=== PATIENT | female | born 1960 | race Two or more races ===

== ENCOUNTER 2016-10-09 06:48 | Day surgery (SDC) | payer BC ==
[~2016-10-09] VITALS: Ht 167.6 cm; Wt 74.8 kg
[~2016-10-09 06:48] MED LIST: AMBIEN
[2016-10-09] MEDS ORDERED: CLINDAMYCIN 600MG IV 50 ML IV ONE (06:59)
[2016-10-09] MEDS ORDERED: BUPIVACAINE 0.25% INJ 50ML VIAL ONE ×2 (08:27→11:13)
[2016-10-09] MEDS ORDERED: fentaNYL CITRATE 100 MCG/2 ML VL ONE (08:41)
[2016-10-09] MEDS ORDERED: MEPERIDINE HCL (50 MG/ML) 1 ML VIAL ONE (08:42)
[2016-10-09] MEDS ORDERED: MIDAZOLAM HCL 1MG/1ML-2 ML VIAL ONE (08:42)
[2016-10-09] MEDS ORDERED: ONDANSETRON HCL 4 MG/2 ML VIAL IV ONE (08:45)
[2016-10-09] MEDS ORDERED: KETOROLAC TROMETH 30 MG/ML 1ML VIAL IV ONE (08:45)
[2016-10-09] MEDS ORDERED: MIDAZOLAM HCL 1MG/1ML-2 ML VIAL IV PRN (08:45)
[2016-10-09] MEDS ORDERED: LABETALOL HCL 5 MG/ML 4ML SYRINGE IV PRN (08:45)
[2016-10-09] MEDS ORDERED: hydrALAZINE HCL 20 MG/ML VL IV PRN (08:45)
[2016-10-09] MEDS ORDERED: ePHEDrine SULFATE 50 MG/ML AMP IV PRN (08:45)
[2016-10-09] MEDS ORDERED: HYDROmorphone HCL 2 MG/ML VL IV PRN (08:45)
[2016-10-09] MEDS ORDERED: DEXAMETHASONE SOD PHOS 10MG/1ML VIAL INJ ONE (08:55)
[2016-10-09] MEDS ORDERED: MORPHINE SULF(PF) 0.5MG/ML 10ML VIAL ONE (08:55)
[2016-10-09] MEDS ORDERED: PROPOFOL 10 MG/ML 20 ML IV ONE (08:55)
[2016-10-09] MEDS ORDERED: fentaNYL CITRATE 100 MCG/2 ML VL IV ONE (09:00)
[2016-10-09] MEDS ORDERED: KETOROLAC TROMETH 30 MG/ML 1ML VIAL ONE (09:08)
[2016-10-09] MEDS ORDERED: PHENYLEPHRINE HCL 10 MG/ML VL ONE (09:19)
[2016-10-09] MEDS ORDERED: BUPIVACAINE 0.25% INJ 50ML VIAL IJ ONE (09:30)
[2016-10-09 10:59] VITALS: BP 127/92
== END 2016-10-09 11:09 | disposition home or self-care (01) ==
LOC: EDUNIT# 06:48 → SUR 06:48
PROVIDERS: ATTEND Orthopaedic Surgery
DX: S83.242A Other tear of medial meniscus, current injury, left knee, initial encounter (principal); X58.XXXA Exposure to other specified factors, initial encounter; Y93.9 Activity, unspecified; Y92.9 Unspecified place or not applicable; Y99.9 Unspecified external cause status; F17.200 Nicotine dependence, unspecified, uncomplicated
CPT/HCPCS: 29870; J1100; J1885; J2175; J2250; J2270; J2370; J2704; J3010; J3490

== ENCOUNTER 2016-10-16 16:45 | Emergency (ER) | payer BC ==
[~2016-10-16] VITALS: Ht 167.6 cm; Wt 74.8 kg
[2016-10-16 16:49] VITALS: BP 139/90
[2016-10-16 17:32] LABS: Basophils # (auto) 0 uL; Basophils % (auto) 0.3 % (0.0-2.0); Eosinophils # (auto) 0.2 uL; Eosinophils % (auto) 1.9 % (0.0-7.0); Hematocrit 45.2 % (36.0-46.0); Hemoglobin 14.3 g/dL (12.2-16.2); Lymphocytes # (auto) 3.1 uL; Lymphocytes % (auto) 27.6 % (10.0-50.0); Mean Corpuscular Hgb Conc. 31.6 g/dL (32.0-36.0); Mean Corpuscular Volume 91.7 fL (80.0-100.0); Mean Platelet Volume 7.9 fL (7.4-10.4); Monocytes # (auto) 1.2 uL; Monocytes % (auto) 10.3 % (0.0-12.0); Neutrophils # (auto) 6.8 uL; Neutrophils % (auto) 59.9 % (37.0-80.0); Platelet Count (auto) 312 10^3/uL (140-450); Red Cell Distribution Width 13.4 % (11.6-16.0); White Blood Cell 11.4 10^3/uL (4.4-10.8)
[2016-10-16 17:40] LABS: Albumin 3.9 g/dL (3.4-5.0); Alkaline Phosphatase 99 U/L (45-117); Anion Gap 8 (5-15); Aspartate Aminotransferase 16 U/L (15-37); BUN/Creatinine Ratio 22.6; Bilirubin, Total 0.4 mg/dL (0.2-1.0); Blood Urea Nitrogen 19 mg/dL (7-18); Calcium 8.9 mg/dL (8.5-10.1); Carbon Dioxide 28 mmol/L (21-32); Chloride 107 mmol/L (98-107); GFR African American 90 mL/min; GFR Non-African American 74 mL/min; Glucose 87 mg/dL (74-106); Magnesium 2.5 mg/dL (1.6-2.6); Potassium 4.3 mmol/L (3.5-5.1); Sodium 143 mmol/L (136-145); Total Protein 7.2 g/dL (6.4-8.2)
== END 2016-10-16 21:11 | disposition left against medical advice (07) ==
LOC: ER 16:47 → EDUNIT# 16:47 → ER 21:11
DX: R06.02 Shortness of breath (principal); Z53.21 Procedure and treatment not carried out due to patient leaving prior to being seen by health care provider
CPT/HCPCS: 36415; 71020; 80053; 83735; 84484; 85025; 85379

== ENCOUNTER 2016-10-21 12:07 | Emergency (ER) | payer BC ==
[~2016-10-21] VITALS: Ht 167.6 cm; Wt 74.8 kg
[2016-10-21] MEDS ORDERED: SODIUM CHLORIDE 0.9% 1,000 ML IV ONE (13:25)
[2016-10-21 14:26] LABS: Albumin 3.7 g/dL (3.4-5.0); BUN/Creatinine Ratio 15.9; Bilirubin, Total 0.4 mg/dL (0.2-1.0); Calcium 9.2 mg/dL (8.5-10.1); Magnesium 2.6 mg/dL (1.6-2.6)
[2016-10-21 14:28] LABS: Basophils # (auto) 0 uL; Basophils % (auto) 0.3 % (0.0-2.0); Eosinophils # (auto) 0.2 uL; Eosinophils % (auto) 1.7 % (0.0-7.0); Hematocrit 41.7 % (36.0-46.0); Lymphocytes # (auto) 2.5 uL; Lymphocytes % (auto) 27.5 % (10.0-50.0); Mean Corpuscular Hgb Conc. 33.5 g/dL (32.0-36.0); Mean Corpuscular Volume 89.5 fL (80.0-100.0); Mean Platelet Volume 7.8 fL (7.4-10.4); Monocytes # (auto) 0.6 uL; Monocytes % (auto) 6.6 % (0.0-12.0); Neutrophils # (auto) 5.9 uL; Neutrophils % (auto) 63.9 % (37.0-80.0); Platelet Count (auto) 330 10^3/uL (140-450); Red Cell Distribution Width 13.4 % (11.6-16.0); White Blood Cell 9.2 10^3/uL (4.4-10.8)
[2016-10-21] MEDS ORDERED: IOHEXOL 350 MG/ML 100ML IJ ONE (14:58)
[2016-10-21 16:52] VITALS: BP 118/95
== END 2016-10-21 17:10 | disposition home or self-care (01) ==
LOC: ER 12:13
DX: R06.02 Shortness of breath (principal); Z96.652 Presence of left artificial knee joint
CPT/HCPCS: 36415; 71020; 71275; 80053; 83735; 84443; 85025; 85379; 93005; 93971; 94761; 96360; 96361; 99285; J7030; Q9967

== ENCOUNTER 2019-05-18 05:47 | Inpatient (IN) | payer BC ==
[~2019-05-18] VITALS: Ht 167.6 cm; Wt 93.9 kg
[2019-05-18 06:51] LABS: Basophils # (auto) 0 uL; Basophils % (auto) 0.1 % (0.0-2.0); Eosinophils # (auto) 0 uL; Eosinophils % (auto) 0.1 % (0.0-7.0); Hemoglobin 15.1 g/dL (12.2-16.2); Lymphocytes # (auto) 1.4 uL; Lymphocytes % (auto) 8.4 % (10.0-50.0); Mean Corpuscular Hemoglobin 29.9 pg (28.0-32.0); Mean Corpuscular Hgb Conc. 34.2 g/dL (32.0-36.0); Mean Corpuscular Volume 87.3 fL (80.0-100.0); Monocytes # (auto) 1.1 uL; Monocytes % (auto) 6.2 % (0.0-12.0); Neutrophils # (auto) 14.7 uL; Neutrophils % (auto) 85.2 % (37.0-80.0); Platelet Count (auto) 231 10^3/uL (140-450); Red Blood Cells 5.05 10^6/uL (4.0-5.20); Red Cell Distribution Width 14.3 % (11.8-14.3); White Blood Cell 17.2 10^3/uL (4.4-10.8)
[2019-05-18 07:20] LABS: Alanine Aminotransferase 16 U/L (13-56); Albumin 3.1 g/dL (3.4-5.0); Amylase 31 U/L (25-115); Anion Gap 10 (5-15); Aspartate Aminotransferase 12 U/L (15-37); Blood Urea Nitrogen 16 mg/dL (7-18); Calcium 9.1 mg/dL (8.5-10.1); Carbon Dioxide 21 mmol/L (21-32); Chloride 107 mmol/L (98-107); Glucose 140 mg/dL (74-106); Lipase 79 U/L (73-393); Potassium 3.6 mmol/L (3.5-5.1); Sodium 138 mmol/L (136-145)
[2019-05-18 07:25] LABS: Alkaline Phosphatase 90 U/L (45-117); Bilirubin, Total 1.1 mg/dL (0.2-1.0); GFR African American 89 mL/min; GFR Non-African American 73 mL/min; Total Protein 7.3 g/dL (6.4-8.2)
[2019-05-18] MEDS ORDERED: SODIUM CHLORIDE 0.9% 1,000 ML IV ONE ×2 (07:34)
[2019-05-18] MEDS ORDERED: ONDANSETRON HCL 4 MG/2 ML VIAL IV ONE (07:45)
[2019-05-18] MEDS ORDERED: LEVOFLOXACIN 500MG 100 ML IV ONE (07:45)
[2019-05-18] MEDS ORDERED: MORPHINE SULFATE 4 MG/ML SYR/VIAL IV ONE (07:45)
[2019-05-18] MEDS ORDERED: VANCOMYCIN 1GM/250ML 250 ML IV ONE (07:45)
[2019-05-18] MEDS ORDERED: NITROGLYCERIN 0.4 MG SL TAB SL PRN (08:00)
[2019-05-18] MEDS ORDERED: HYDROmorphone HCL 2 MG/ML VL IV PRN ×2 (08:00→11:30)
[2019-05-18] MEDS ORDERED: SODIUM CHLORIDE 0.9% 500 ML IV ONE (08:00)
[2019-05-18] MEDS ORDERED: VANCOMYCIN PER PHARMACY 0 MG IV SCH (08:00)
[2019-05-18] MEDS ORDERED: ONDANSETRON HCL 4 MG/2 ML VIAL IV PRN ×2 (08:00→11:30)
[2019-05-18] MEDS ORDERED: diphenhdrAMINE HCL 50 MG/1 ML VL ONE (08:11)
[2019-05-18] MEDS ORDERED: diphenhdrAMINE HCL 50 MG/1 ML VL IV ONE (08:15)
[2019-05-18] MEDS ORDERED: SOD CHL 0.45% WITH 20MEQ KCL 1,000 ML IV STA (09:02)
[2019-05-18 10:01] LABS: INR 1.03 (0.9-1.15); Partial Thromboplastin Time 29.3 sec (23.64-32.05)
[2019-05-18 10:05] LABS: Urine Bacteria FEW /hpf (None Seen); Urine Blood 2+ /uL (Negative); Urine Specific Gravity 1.008 (1.001-1.035); Urine WBC 1 /hpf (0 - 5)
[2019-05-18] MEDS: SODIUM CHLORIDE 0.9% 1,000 ML IV SCH ×2 (10:22→18:42)
[2019-05-18] MEDS ORDERED: ROCURONIUM 10MG/ML 10ML VIAL IV ONE (11:19)
[2019-05-18] MEDS ORDERED: PROPOFOL 10 MG/ML 20 ML IV ONE (11:19)
[2019-05-18] MEDS ORDERED: MIDAZOLAM HCL 1MG/1ML-2 ML VIAL ONE (11:19)
[2019-05-18] MEDS ORDERED: fentaNYL CITRATE 5 ML ONE (11:19)
[2019-05-18] MEDS ORDERED: SUCCINYLCHOLINE CHLORIDE 20 MG/ML 10ML VIAL IV ONE (11:21)
[2019-05-18] MEDS ORDERED: ePHEDrine SULFATE 50 MG/ML AMP IV PRN (11:30)
[2019-05-18] MEDS ORDERED: hydrALAZINE HCL 20 MG/ML VL IV PRN (11:30)
[2019-05-18] MEDS ORDERED: POVIDONE IODINE 5% TOPICAL CREAM TOP ONE (12:19)
[2019-05-18] MEDS: HYDROmorphone HCL 2 MG/ML VL IV PRN ×2 (13:36→13:48)
[2019-05-18 14:30] VITALS: BP 124/80
--- NOTE | 2019-05-18 14:30 | NUR ---
MS admit from [facility] ROSAURA BONILLA admitted to tele/MS after SBAR received. Patient oriented to MATT MANCERA, primary RN, unit, room, bed, and unit policies regarding patient care and visiting hours. Patient weighed by bed scale and encouraged to call if they need something. All questions and concerns addressed, patient verbalized understanding.
--- NOTE | 2019-05-18 16:30 | NUR ---
Dr. Nichols paged regarding NG to low suction order. Awaiting to call back.
[2019-05-18] MEDS: KETOROLAC TROMETH 30 MG/ML 1ML VIAL IV PRN ×2 (16:35→22:15)
[2019-05-18 16:54] VITALS: BP 124/80
--- NOTE | 2019-05-18 16:55 | NUR ---
Received a call from Dr. Nichols with new order : NG need to be connected to low suction.
--- NOTE | 2019-05-18 18:40 | NUR ---
Empty 120 ml serosanguineous from 2 DEB drains.
[2019-05-18] MEDS: VANCOMYCIN 1GM/250ML 250 ML IV SCH (20:07)
--- NOTE | 2019-05-18 20:57 | NUR ---
ABDOMINAL PAIN PATIENT C/O ABDOMINAL PAIN 8/10 AND A HEADACHE. PATIENT CURRENTLY ON TORADOL 30MG IV Q 6HRS PRN AND DOESNT SEEM TO BE CONTROLLING HER PAIN. PATIENT S/P EX LAP PERITONEAL LAVAGE AND INSERTION OF PERITONEAL DRAIN WITH DR GUTIÉRREZ. PATIENT HAS ALLERGIES TO MORPHINE WITH ITCHINESS. PHARMACY PLACED ORDER FOR DILAUDID ON HOLD D/T MORPHINE ALLERGIES. ATTEMPTED TO CONTACT DR GUTIÉRREZ MADE AWARE, AND STATES TO CONTACT HOSPITALIST. PAGED HOSPITALIST AWAITING CALL BACK.
[2019-05-18 22:00] VITALS: BP 115/69
[2019-05-19] MEDS: KETOROLAC TROMETH 30 MG/ML 1ML VIAL IV PRN ×2 (04:07→20:50)
[2019-05-19] MEDS: SODIUM CHLORIDE 0.9% 1,000 ML IV SCH ×2 (04:07→17:06)
[2019-05-19 05:28] VITALS: BP 112/81
[2019-05-19 05:33] LABS: Basophils # (auto) 0 uL; Basophils % (auto) 0.1 % (0.0-2.0); Eosinophils # (auto) 0 uL; Hematocrit 34.4 % (36.0-46.0); Hemoglobin 11.7 g/dL (12.2-16.2); Lymphocytes # (auto) 0.8 uL; Mean Corpuscular Hgb Conc. 34.1 g/dL (32.0-36.0); Monocytes # (auto) 0.8 uL; Monocytes % (auto) 8.1 % (0.0-12.0); Neutrophils # (auto) 8.4 uL; Neutrophils % (auto) 83.8 % (37.0-80.0); Platelet Count (auto) 196 10^3/uL (140-450); Red Blood Cells 3.91 10^6/uL (4.0-5.20); Red Cell Distribution Width 14.3 % (11.8-14.3); White Blood Cell 10.1 10^3/uL (4.4-10.8)
[2019-05-19 05:49] LABS: Potassium 3.9 mmol/L (3.5-5.1)
[2019-05-19 05:53] LABS: Albumin 2.1 g/dL (3.4-5.0); BUN/Creatinine Ratio 23.6; Calcium 7.9 mg/dL (8.5-10.1)
[2019-05-19 05:56] LABS: Bilirubin, Total 0.5 mg/dL (0.2-1.0); Total Protein 5.5 g/dL (6.4-8.2)
--- NOTE | 2019-05-19 07:45 | NUR ---
Opening Shift Note Assumed care of patient from NOC RN. Patient awake and alert with no S/S of distress/SOB. C/O abdominal pain 5/10 on adult pain scale and is not requesting pain medication at this time. NG tube to left nares, intact, patent and set to low intermittent suction. Canister has approximately 100mls of dark brown drainage. Medial abdomen with surgical dressing, clean/dry and intact. DEB drains to RLQ and LLQ, both will minimal serosanguineous drainage. Abdominal binder in place. SCD's on bilateral lower extremities. Instructed on POC and to call for assist PRN, verbalized understanding. Bed in lowest, locked position with side rails up x2 and call light within reach. will continue to monitor for changes Q1hr and PRN.
[2019-05-19] MEDS: VANCOMYCIN 1GM/250ML 250 ML IV SCH ×2 (09:03→20:30)
[2019-05-19 10:00] VITALS: BP 116/69
[2019-05-19] MEDS: LEVOFLOXACIN 500MG 100 ML IV SCH (10:52)
[2019-05-19] MEDS ORDERED: GLYCOPYRROLATE 0.2 MG/ML 1ML VIAL IV ONE (12:47)
--- NOTE | 2019-05-19 13:30 | NUR ---
DEB DRAINS Emptied 40mls of serosanguineous fluid from right lower quadrant DEB drain and 60mls from left lower quadrant DEB drain.
--- NOTE | 2019-05-19 13:45 | NUR ---
ASHRAF Order to discontinue ashraf catheter. Ashraf dc'd with clean technique following deflation of balloon. 900mls of light yellow urine was emptied. Patient tolerated well with no complaints of pain. Continue care.
[2019-05-19 14:00] VITALS: BP 114/70
--- NOTE | 2019-05-19 15:42 | NUR ---
IV IV access obtained, via clean sterile technique by inserting 22 gauge catheter at right AC after 4 attempts. IV secured properly. No trauma to site. Patient tolerated well.
[2019-05-19 16:59] VITALS: BP 110/70
[2019-05-19] MEDS: NALBUPHINE HCL 10 MG/1ml INJECTION IV PRN ×2 (17:06→23:44)
--- NOTE | 2019-05-19 19:30 | NUR ---
Opening Shift Note Assumed care of patient, awake and alert. No S/S of distress or SOB. Patient reports pain level 5/10. Will medicated as soon as possible. Instructed on POC and to call for assist PRN, will continue to monitor for changes Q1hr and PRN. Patient due to void after ashraf discontinued today.
--- NOTE | 2019-05-19 19:50 | NUR ---
CLOSING NOTE Endorsed care of patient to NOC RN.
[2019-05-19 21:27] VITALS: BP 110/79
--- NOTE | 2019-05-19 22:00 | NUR ---
Patient ambulated to bathroom with assistance. Voided without problems for first time since ashraf catheter discontinued.
--- NOTE | 2019-05-19 23:50 | NUR ---
DEB drains patent and intact. Empty 30 ml serosanguinous drainage from right DEB and 20 ml serosanguinous drainage from left DEB.
[2019-05-20] MEDS: SODIUM CHLORIDE 0.9% 1,000 ML IV SCH ×3 (02:50→10:00)
[2019-05-20 05:26] VITALS: BP 118/76
[2019-05-20 06:09] LABS: Basophils # (auto) 0 uL; Basophils % (auto) 0.2 % (0.0-2.0); Eosinophils # (auto) 0.2 uL; Eosinophils % (auto) 1.7 % (0.0-7.0); Hematocrit 33.1 % (36.0-46.0); Hemoglobin 11.3 g/dL (12.2-16.2); Lymphocytes # (auto) 1.2 uL; Lymphocytes % (auto) 12.3 % (10.0-50.0); Mean Corpuscular Hemoglobin 30.1 pg (28.0-32.0); Mean Corpuscular Hgb Conc. 34.2 g/dL (32.0-36.0); Mean Corpuscular Volume 88.1 fL (80.0-100.0); Monocytes % (auto) 10.7 % (0.0-12.0); Neutrophils # (auto) 7.3 uL; Neutrophils % (auto) 75.1 % (37.0-80.0); Platelet Count (auto) 225 10^3/uL (140-450); Red Blood Cells 3.76 10^6/uL (4.0-5.20); Red Cell Distribution Width 14.2 % (11.8-14.3); White Blood Cell 9.7 10^3/uL (4.4-10.8)
[2019-05-20 06:36] LABS: Anion Gap 6 (5-15); Carbon Dioxide 24 mmol/L (21-32); Chloride 111 mmol/L (98-107); Glucose 98 mg/dL (74-106); Potassium 3.8 mmol/L (3.5-5.1); Sodium 141 mmol/L (136-145)
[2019-05-20 06:37] LABS: BUN/Creatinine Ratio 33.3; Blood Urea Nitrogen 16 mg/dL (7-18); Calcium 8.2 mg/dL (8.5-10.1); GFR African American 169 mL/min; GFR Non-African American 140 mL/min
[2019-05-20] MEDS: NALBUPHINE HCL 10 MG/1ml INJECTION IV PRN ×2 (07:09→16:04)
--- NOTE | 2019-05-20 07:10 | NUR ---
NG TUBE OUTPUT 15O ML, BROWN DRAINAGE.
--- NOTE | 2019-05-20 07:30 | NUR ---
SHIFT CLOSING NOTE ENDORSED CARE OF PATIENT TO DAY SHIFT, JOELLEN ALVARADO.
[2019-05-20 08:00] VITALS: BP 117/74
--- NOTE | 2019-05-20 08:00 | NUR ---
Opening Shift Note Assumed care of patient, awake and alert x4. No S/S of distress/SOB or pain. Patient c/o fatigue, she states she did not have a good night and would like to sleep for a couple of hours. Dressing to medial abdomen is clean dry and intact. DEB drain to the left is intact and dressing is mildly saturated with old blood. DEB drain to the left is intact and draining well. Bed is a t lowest locked position, side rails up x2 and call light within reach. Instructed on POC and to call for assist PRN, will continue to monitor for changes Q1hr and PRN.
[2019-05-20] MEDS: VANCOMYCIN 1GM/250ML 250 ML IV SCH ×2 (08:25→20:17)
[2019-05-20 09:00] VITALS: BP 117/74
--- NOTE | 2019-05-20 09:40 | NUR ---
ASSISTED PATIENT TO BATHROOM. PATIENT AMBULATED WITH STEADY GAIT, C/O MILD PAIN WITH AMBULATION. INSTRUCTED PATIENT TO PATIENT TO CALL FOR ASSISTANCE.WILL CONTINUE TO MONITOR.
[2019-05-20] MEDS: LEVOFLOXACIN 500MG 100 ML IV SCH (10:37)
--- NOTE | 2019-05-20 12:22 | NUR ---
Nutrition Assessment Notes Please see attached link for complete assessment Est. Needs ABW [id number] kcal (23-25 kcal/kgBW), 75-82 gms pro (1.0-1.1 gms/kgBW). Will continue to monitor pertinent labs and reassess nutrient need prn Addendum: 05/20/19 at [address] Amended: Links added.
[2019-05-20 13:00] VITALS: BP 124/78
[2019-05-20] MEDS: KETOROLAC TROMETH 30 MG/ML 1ML VIAL IV PRN ×2 (13:53→19:53)
[2019-05-20 17:00] VITALS: BP 127/80
--- NOTE | 2019-05-20 18:50 | NUR ---
NGT Collected 125mls of brownish fluid.
--- NOTE | 2019-05-20 18:55 | NUR ---
DEB DRAINS Collected 30mls of serosanguineous fluid from LLQ DEB drain and 7O mls of serosanguineous fluid from RLQ DEB drain. Both drains are intact. Patient tolerated well.
--- NOTE | 2019-05-20 19:17 | NUR ---
closing note shift Patient comfortably resting in bed. No c/o pain. No s/s of distress/SOB. Bed at lowest locked position , side rails up x2 and call light within reach. Family at bed side. Care endorsed to DOUG Chavez RN.
--- NOTE | 2019-05-20 20:00 | NUR ---
OPENING NOTE RECEIVED REPORT FROM ELROY RN. ASSUMING ROLE OF CARE OF PATIENT AT THIS TIME. PATIENT SHOWING NO SIGN OF DISTRESS, SHORTNESS OF BREATH, BUT PATIENT STATES PAIN IS 8/10. WILL MEDICATE PER PAIN PROTOCOL WHEN AVAILABLE. PATIENT EDUCATED ON PLAN OF CARE FOR THE NIGHT AND PATIENT VERBALIZED UNDERSTANDING. DRESSINGS CLEAN DRY AND INTACT. DEB DRAINS DRAINING SANGUINEOUS FLUID AND NG TUBE IN PLACE SET TO LIS. BED LOWERED, CALL LIGHT WITHIN REACH, AND PATIENT WILL BE ROUNDED ON EVERY HOUR AND NEEDED.
[2019-05-20 22:00] VITALS: BP 119/71
--- NOTE | 2019-05-20 22:00 | NUR ---
HOSPITALIST PAGED PATIENT REQUESTING SOMETHING FOR DECONGESTION. PATIENT IS NPO WITH AN NG TUBE IN PLACE AND TWO DEB DRAINS FOLLOWING A PERITONEAL LAVAGE. WILL AWAIT CALL BACK OR ORDERS.
[2019-05-20] MEDS ORDERED: ACETYLCYSTEINE 10 %(100MG/ML) SOL 4ML NEB ONE (23:00)
--- NOTE | 2019-05-20 23:04 | NUR ---
CONTACTED RT INFORMED RT OF ORDER FOR MUCOMYST. INFORMED BY RT FARHANA THAT INHALANT CANNOT BE ADMINISTERED BY ITSELF BUT MUST BE ACCOMPANIED BY A BRONCHODILATOR. WILL CONTACT HOSPITALIST FOR ORDERS.
[2019-05-21] MEDS ORDERED: ALBUTEROL SULF 2.5 MG/0.5ML(0.5%) NEB SOLN ONE (00:41)
[2019-05-21] MEDS ORDERED: ALBUTEROL SULF 2.5 MG/0.5ML(0.5%) NEB SOLN NEB ONE (00:45)
--- NOTE | 2019-05-21 00:51 | NUR ---
RT NOTE: PAGED FOR BREATHING TX FOR PT CONGESTION. PT ALERT AND ORIENTATED, DENIES SOB. PT COMPLAINS OF SINUS CONGESTION AND STATED SHE TAKES BENADRYL DAILY FOR IT. MED NEB TX GIVEN WITH MINIMAL RELIEF PT STATED. PT REQUEST FOR SOME TYPE OF ALLERGY MEDICATION FOR SINUS ISSUE. JOELLEN MAHARAJ NOTIFIED.
[2019-05-21] MEDS: NALBUPHINE HCL 10 MG/1ml INJECTION IV PRN ×2 (01:09→18:33)
[2019-05-21 05:00] VITALS: BP 124/75
--- NOTE | 2019-05-21 05:38 | NUR ---
CANISTER EMPTIED AT THIS TIME TOTAL OUTPUT FROM NG TUBE DURING SHIFT IS APPROXIMATELY 200ML OR BROWN GREEN FLUID.
--- NOTE | 2019-05-21 06:22 | NUR ---
DEB DRAINS EMPTIED AT THIS TIME. LEFT DRAIN EMPTIED APPROXIMATELY 27 ML OF SANGUINEOUS FLUID WHILE THE RIGHT DEB DRAIN EMPTIED APPROXIMATELY 25 ML OF SANGUINEOUS FLUID.
--- NOTE | 2019-05-21 07:30 | NUR ---
Opening Shift Note Assumed care of patient, awake and alert. No S/S of distress/SOB. Pain reported to abdomen. Pain management options discussed with patient. NG tube in place with LIS applied. Instructed on POC and to call for assist PRN, will continue to monitor for changes Q1hr and PRN.
[2019-05-21 08:00] VITALS: BP 122/70
[2019-05-21] MEDS: KETOROLAC TROMETH 30 MG/ML 1ML VIAL IV PRN ×2 (08:31→17:22)
[2019-05-21] MEDS: VANCOMYCIN 1GM/250ML 250 ML IV SCH ×2 (08:31→20:55)
[2019-05-21] MEDS: SODIUM CHLORIDE 0.9% 1,000 ML IV SCH ×2 (08:35→15:46)
[2019-05-21 09:00] VITALS: BP 122/70
[2019-05-21] MEDS: LEVOFLOXACIN 500MG 100 ML IV SCH (10:00)
[2019-05-21] MEDS: metroNIDAZOLE 500MG/100ML 100 ML IV SCH ×2 (12:32→19:53)
[2019-05-21 13:00] VITALS: BP 138/71
[2019-05-21 17:00] VITALS: BP 134/77
--- NOTE | 2019-05-21 19:20 | NUR ---
RECEIVED PATIENT, AWAKE, ALERT, ORIENTED X4. NO S/S OF RESPIRATORY DISTRESS, STILL C/O OF ABDOMINAL PAIN, DENIES NAUSEA AND VOMITING. WITH NGT CONNECTED ON LIS. WITH DEB DRAINS ON THE RIGHT AND LEFT LOWER ABDOMEN DRAINING TO SANGUINEOUS FLUID. ORIENTED ON PLAN OF CARE. BED IS LOCKED AND IN LOWEST POSITION, SIDE RAILS UP X2, CALL LIGHT WITHIN REACH. WILL CONTINUE TO MONITOR.
[2019-05-21 22:00] VITALS: BP 118/72
[2019-05-22] MEDS: SODIUM CHLORIDE 0.9% 1,000 ML IV SCH ×3 (01:58→22:00)
[2019-05-22] MEDS: KETOROLAC TROMETH 30 MG/ML 1ML VIAL IV PRN ×3 (02:42→15:01)
--- NOTE | 2019-05-22 03:00 | NUR ---
WOUND CARE/DRESSING CHANGE DONE.
[2019-05-22 04:30] VITALS: BP 123/69
[2019-05-22] MEDS: metroNIDAZOLE 500MG/100ML 100 ML IV SCH ×3 (04:41→20:07)
--- NOTE | 2019-05-22 06:43 | NUR ---
DEB DRAINS RIGHT DEB COLLECTED 20 ML OF SANGUINEOUS FLUID LEFT DEB COLLECTED 15 ML OF SANGUINEOUS FLUID
--- NOTE | 2019-05-22 06:50 | NUR ---
NGT OUTPUT COLLECTED 150 ML LIGHT YELLOW FLUID FROM NGT ON LIS
--- NOTE | 2019-05-22 07:00 | NUR ---
CARE ENDORSED TO AM SHIFT RN
[2019-05-22] MEDS: VANCOMYCIN 1GM/250ML 250 ML IV SCH (07:30)
--- NOTE | 2019-05-22 07:36 | NUR ---
PATIENT RECEIVED FROM [employer]IDENT[employer]. 150 ML REPORTED RECEIVED FROM ABDOMINAL DRAINS FOR THE PRESIDENT[employer] EXPERIENCES
[2019-05-22 08:00] VITALS: BP 132/73
[2019-05-22 09:00] VITALS: BP 132/73
[2019-05-22] MEDS: LEVOFLOXACIN 500MG 100 ML IV SCH (10:31)
--- NOTE | 2019-05-22 11:53 | NUR ---
NG DISCONTINUED PER DR. MACE. CLEAR LIQUID DIET. PHYSICAL THERAPY
[2019-05-22 13:00] VITALS: BP 111/77
--- NOTE | 2019-05-22 15:16 | NUR ---
Nutrition Follow-up Notes Wt.: 92.0 kg as of yesterday. Pt's on oxygen via nasal cannula, asleep, no immediate family member at bedside during rounds this morning. Pt's NPO s/p explor lap (05/18/19), no signs of distress noted earlier to start on Clear Liquid diet today. Est. Needs ABW [id number] kcal (23-25 kcal/kgBW), 75-82 gms pro (1.0-1.1 gms/kgBW). Will continue to monitor pertinent labs and reassess nutrient need prn Labs: Gluc 126 H Cl 112 H, BUN 30 H; AST 287 H, ALT 173 H, Alb 3.0 L, Trop I 0.998 H Skin: Evan scale 11, high risk, skin intact per bulk plant operator. GI: Pt's no bowel activity since 05/18/19 per bulk plant operator. PES: Altered nutrition related lab values r/t current/chronic medical condition aeb hypocalcemia, severe hypoalb Will continue to monitor PO intake, skin status, pertinent labs and weight trend. F/u in 3 to 5 days. Rec.: 1.) Advance gradually oral diet (Soft Low Fiber/Residue, Low Fat diet) when medically appropriate. 2.) Continue close supervision during meals. 2.) Continue close supervision with meals. 3.) If Albumin continues trending down, consider Prostat 1 pkt BID. 4.) Refer pt to RD for further nutrition education and weight monitoring upon discharge. 5.) Continue current plan of care.
[2019-05-22] MEDS ORDERED: GASTROGRAFIN 30 ML SOL ONE (15:41)
[2019-05-22 16:46] VITALS: BP 125/74
--- NOTE | 2019-05-22 17:05 | NUR ---
UNSUCCESSFUL Midline Placement: Patient educated on need for midline placement. All risks and benefits explained and all questions and concerns addresses prior to procedure. AFTER ONE UNSUCCESSFUL ATTEMPT, PATIENT STATES SHE DOES NOT WANT ANOTHER ATTEMPT AND "WANTS TO WAIT UNTIL MORNING". PRIMARY RN NOTIFIED.
[2019-05-22] MEDS: NALBUPHINE HCL 10 MG/1ml INJECTION IV PRN (18:49)
--- NOTE | 2019-05-22 19:20 | NUR ---
RECEIVED PATIENT, AWAKE, ALERT, ORIENTED X4. NO S/S OF RESPIRATORY DISTRESS, DENIES ABDOMINAL PAIN, NAUSEA AND VOMITING. WITH DEB DRAINS ON THE RIGHT AND LEFT LOWER ABDOMEN DRAINING TO SANGUINEOUS FLUID. ORIENTED ON PLAN OF CARE. BED IS LOCKED AND IN LOWEST POSITION, SIDE RAILS UP X2, CALL LIGHT WITHIN REACH. WILL CONTINUE TO MONITOR.
[2019-05-22 22:00] VITALS: BP 117/79
[2019-05-23] MEDS: metroNIDAZOLE 500MG/100ML 100 ML IV SCH (03:53)
[2019-05-23] MEDS: NALBUPHINE HCL 10 MG/1ml INJECTION IV PRN ×2 (04:03→18:19)
[2019-05-23 04:49] LABS: Albumin 1.9 g/dL (3.4-5.0); BUN/Creatinine Ratio 18.2; Calcium 7.8 mg/dL (8.5-10.1)
[2019-05-23 04:53] LABS: Bilirubin, Total 0.5 mg/dL (0.2-1.0); Total Protein 5.3 g/dL (6.4-8.2)
[2019-05-23 05:00] VITALS: BP 129/76
[2019-05-23] MEDS ORDERED: POTASSIUM CHLORIDE 20 MEQ, LIDOCAINE 1% (LOCAL ANESTH.) 2 ML in SODIUM CHL 0.9% 100 ML IV ONE (05:30)
--- NOTE | 2019-05-23 05:30 | NUR ---
MARIUM HOSPITALIST, PATIENT'S POTASSIUM LEVEL HAS BEEN TRENDING DOWN, LATEST 3.0 RECEIVED ORDER FROM ANUPAMA DYE; CHANGE IV FLUID TO NS + 20 MEQS KCL AT 100 ML/HR AND 1 K-RIDER 20 MEQS WITH LIDOCAINE
[2019-05-23 05:32] LABS: Basophils # (auto) 0 uL; Basophils % (auto) 0.2 % (0.0-2.0); Eosinophils # (auto) 0.3 uL; Eosinophils % (auto) 2.4 % (0.0-7.0); Hematocrit 34.1 % (36.0-46.0); Hemoglobin 11.3 g/dL (12.2-16.2); Lymphocytes # (auto) 1.2 uL; Lymphocytes % (auto) 9.9 % (10.0-50.0); Mean Corpuscular Hemoglobin 29.1 pg (28.0-32.0); Mean Corpuscular Hgb Conc. 33.1 g/dL (32.0-36.0); Mean Corpuscular Volume 87.7 fL (80.0-100.0); Monocytes # (auto) 1.2 uL; Monocytes % (auto) 10.2 % (0.0-12.0); Neutrophils # (auto) 9.2 uL; Neutrophils % (auto) 77.3 % (37.0-80.0); Platelet Count (auto) 337 10^3/uL (140-450); Red Blood Cells 3.89 10^6/uL (4.0-5.20); Red Cell Distribution Width 14.1 % (11.8-14.3); White Blood Cell 11.9 10^3/uL (4.4-10.8)
[2019-05-23] MEDS: SOD CHL 0.9%/ KCL 20MEQ 1,000 ML IV SCH ×2 (05:47→14:22)
--- NOTE | 2019-05-23 06:41 | NUR ---
DEB DRAINS RIGHT DEB COLLECTED 20 ML OF SANGUINEOUS FLUID LEFT DEB COLLECTED 10 ML OF SANGUINEOUS FLUID
--- NOTE | 2019-05-23 07:10 | NUR ---
CARE ENDORSED TO AM SHIFT RN
--- NOTE | 2019-05-23 07:18 | NUR ---
RECEIVED PATIENT FROM NOC SHIFT. 50CC DRAINAGE FROM DEB DRAINS OVER PASSENGER AGENT WELL 50 CC DRAINAGE FROM DAY SHIFT YESTERDAY.
[2019-05-23] MEDS: KETOROLAC TROMETH 30 MG/ML 1ML VIAL IV PRN ×2 (08:10→14:23)
[2019-05-23 08:19] VITALS: BP 144/84
[2019-05-23 08:23] VITALS: BP 144/84
[2019-05-23] MEDS: LEVOFLOXACIN 500MG 100 ML IV SCH (09:43)
[2019-05-23] MEDS ORDERED: LEVOFLOXACIN 500 MG TAB PO ONE (10:45)
[2019-05-23 12:41] VITALS: BP 120/73
--- NOTE | 2019-05-23 13:04 | NUR ---
PT REFUSED PHYSICAL THERAPY TODAY. NOTIFIED JOELLEN KELLER. Addendum: 05/23/19 at 1305 by JOSE WALSH PTT Amended: Links added.
[2019-05-23] MEDS: metroNIDAZOLE 500 MG TAB PO SCH ×2 (14:22→21:30)
--- NOTE | 2019-05-23 15:27 | NUR ---
assessment Patient is a 59 year old female who is alert and oriented. Patients cognitive abilities are intact. Prior to admission patient lived home with family and functioned independently. 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 Patient has no need for DME. Patient informed me she is able to care for her own ADLs. Per patient she will return home to her prior living arrangements post discharge and family will transport her home. Patient has no post discharge needs at this time. I informed patient she has a right to speak to a foster care social worker regarding all care. I informed patient she has a right to participate in any and all discharge planning. Patient does not have a POA and advanced directive. I have offered patient information on POA and advanced directives. I informed the patient the advantages and benefits of having an Advanced Directive. Patient verbalized understanding and agreed to discharge plan. Addendum: 05/24/19 at 1529 by Echo IBRAHIM Amended: Links added.
[2019-05-23 16:39] VITALS: BP 125/68
[2019-05-23 22:15] VITALS: BP 105/67
[2019-05-24] MEDS: SOD CHL 0.9%/ KCL 20MEQ 1,000 ML IV SCH ×2 (02:14→11:20)
[2019-05-24 05:44] VITALS: BP 110/72
[2019-05-24] MEDS: metroNIDAZOLE 500 MG TAB PO SCH ×2 (05:53→14:33)
--- NOTE | 2019-05-24 06:00 | NUR ---
WOUND CARE/DRESSING CHANGE DONE.
--- NOTE | 2019-05-24 06:48 | NUR ---
DEB DRAINS RIGHT DEB COLLECTED 70 ML OF SANGUINEOUS FLUID LEFT DEB COLLECTED 20 ML OF SANGUINEOUS FLUID
--- NOTE | 2019-05-24 07:34 | NUR ---
CARE ENDORSED TO AM SHIFT RN
[2019-05-24 08:00] VITALS: BP 120/68
--- NOTE | 2019-05-24 08:10 | NUR ---
RECEIVED PATIENT FROM NOC SHIFT. 100CC DRAINAGE FROM DEB DRAINS OVER RESTAURANT AREA DIRECTOR WELL 120 CC DRAINAGE FROM DAY SHIFT YESTERDAY.
[2019-05-24 08:46] VITALS: BP 120/68
[2019-05-24] MEDS: NALBUPHINE HCL 10 MG/1ml INJECTION IV PRN (09:24)
[2019-05-24] MEDS ORDERED: LEVOFLOXACIN 500 MG TAB PO SCH (10:00)
[2019-05-24 12:46] VITALS: BP 110/72
[2019-05-24 14:09] VITALS: BP 110/72
--- NOTE | 2019-05-24 15:54 | NUR ---
PATIENT DISCHARGED HOME. ALL IV ACCESS DISCONTINUED. ALL DISCHARGE INSTRUCTIONS GIVEN. TELEMETRY BOX DISCONTINUED AND RETURNED TO TELEMETRY DEPARTMENT. ALL DISCHARGE PAPERWORK SIGNED.
== END 2019-05-24 15:30 | disposition home or self-care (01) | DRG 853 ==
LOC: ER 05:47 → OVERFLOW 05:48 → TELE-WESTW 14:39
PROVIDERS: ADMIT Nurse Practitioner; ATTEND Family Medicine
PROC: 0W9G00Z Drainage of Peritoneal Cavity with Drainage Device, Open Approach (ICD-10-PCS; principal; 2019-05-18 11:33)
DX: A41.9 Sepsis, unspecified organism (principal); K65.9 Peritonitis, unspecified; K57.40 Diverticulitis of both small and large intestine with perforation and abscess without bleeding; E86.0 Dehydration; K66.8 Other specified disorders of peritoneum; B96.20 Unspecified Escherichia coli [E. coli] as the cause of diseases classified elsewhere; K76.89 Other specified diseases of liver; Z88.5 Allergy status to narcotic agent; Z88.0 Allergy status to penicillin; Z88.8 Allergy status to other drugs, medicaments and biological substances
CPT/HCPCS: 36415; 74176; 80048; 80053; 80202; 81001; 82150; 82962; 83605; 83690; 84484; 84702; 85025; 85610; 85730; 86850; 86900; 86901; 87040; 87070; 87075; 87076; 87077; 87186; 87205; 94640; 97116; 97530; G0378; J0330; J1885; J1956; J2001; J2250; J2405; J2704; J3490

== ENCOUNTER 2019-05-25 18:59 | Inpatient (IN) | payer BC ==
[~2019-05-25] VITALS: Ht 165.1 cm; Wt 80.2 kg
[2019-05-25 20:02] LABS: Monocytes # (auto) 1.2 uL; Monocytes % (auto) 6.2 % (0.0-12.0)
[2019-05-25 20:05] LABS: Basophils # (auto) 0 uL; Basophils % (auto) 0.2 % (0.0-2.0); Eosinophils # (auto) 0.2 uL; Hematocrit 35.8 % (36.0-46.0); Hemoglobin 12.2 g/dL (12.2-16.2); Lymphocytes # (auto) 0.9 uL; Lymphocytes % (auto) 4.7 % (10.0-50.0); Mean Corpuscular Hemoglobin 28.4 pg (28.0-32.0); Mean Corpuscular Hgb Conc. 34.1 g/dL (32.0-36.0); Mean Corpuscular Volume 83.4 fL (80.0-100.0); Neutrophils # (auto) 17.3 uL; Neutrophils % (auto) 87.9 % (37.0-80.0); Platelet Count (auto) 515 10^3/uL (140-450); Red Cell Distribution Width 13.9 % (11.8-14.3); White Blood Cell 19.7 10^3/uL (4.4-10.8)
[2019-05-25 20:06] LABS: Albumin 2.1 g/dL (3.4-5.0); Calcium 8.3 mg/dL (8.5-10.1); Potassium 3.2 mmol/L (3.5-5.1)
[2019-05-25 20:09] LABS: Bilirubin, Total 0.5 mg/dL (0.2-1.0); Total Protein 6.1 g/dL (6.4-8.2)
[2019-05-25] MEDS ORDERED: SODIUM CHLORIDE 0.9% 1,000 ML IVB ONE (23:19)
[2019-05-25] MEDS ORDERED: HYDROmorphone HCL 2 MG/ML VL IV ONE (23:30)
[2019-05-25] MEDS ORDERED: ONDANSETRON HCL 4 MG/2 ML VIAL IV ONE (23:30)
[2019-05-25] MEDS ORDERED: diphenhdrAMINE HCL 50 MG/1 ML VL IV ONE (23:30)
[2019-05-25 23:49] LABS: Amylase 27 U/L (25-115); Lipase 79 U/L (73-393)
[2019-05-25 23:56] LABS: INR 1.15 (0.9-1.15); Partial Thromboplastin Time 27.6 sec (23.64-32.05)
[2019-05-26] MEDS ORDERED: IOHEXOL 300 MG/ML 100ML BOTTLE IJ ONE (00:23)
[2019-05-26] MEDS ORDERED: VANCOMYCIN 1GM/250ML 250 ML IV ONE (02:15)
[2019-05-26] MEDS ORDERED: SODIUM CHLORIDE 0.9% 1,000 ML IV ONE (02:15)
[2019-05-26] MEDS ORDERED: PIPERACILLIN-TAZO 4.5GM 100 ML IV ONE (02:15)
[2019-05-26] MEDS ORDERED: metroNIDAZOLE 500MG/100ML 100 ML IV ONE (02:15)
[2019-05-26] MEDS ORDERED: VANCOMYCIN PER PHARMACY 0 MG IV SCH ×3 (03:15→13:45)
[2019-05-26] MEDS ORDERED: NITROGLYCERIN 0.4 MG SL TAB SL PRN (03:15)
[2019-05-26] MEDS ORDERED: LEVOFLOXACIN 500MG 100 ML IV ONE (03:30)
[2019-05-26] MEDS ORDERED: POTASSIUM CHL 20MEQ/100ML 100 ML IV ONE (04:30)
[2019-05-26] MEDS: SODIUM CHLORIDE 0.9% 1,000 ML IV SCH ×2 (04:43→15:01)
[2019-05-26] MEDS ORDERED: metroNIDAZOLE 500MG/100ML 100 ML IV SCH (06:00)
[2019-05-26 07:53] LABS: Albumin 1.7 g/dL (3.4-5.0); Calcium 7.5 mg/dL (8.5-10.1); Potassium 3.2 mmol/L (3.5-5.1)
[2019-05-26 07:56] LABS: BUN/Creatinine Ratio 12.5; Bilirubin, Total 0.4 mg/dL (0.2-1.0); Total Protein 5.1 g/dL (6.4-8.2)
[2019-05-26] MEDS ORDERED: GASTROGRAFIN 120 ML SOL ONE (08:21)
[2019-05-26 08:41] LABS: Urine Bacteria NONE SEEN /hpf (None Seen); Urine Blood 2+ /uL (Negative); Urine WBC 11 /hpf (0 - 5)
[2019-05-26 08:49] LABS: Urine Specific Gravity 1.042 (1.001-1.035)
[2019-05-26] MEDS ORDERED: LEVOFLOXACIN 500MG 100 ML IV SCH (10:00)
[2019-05-26] MEDS: FAMOTIDINE (10MG/ML) 2ML VL IV SCH (11:57)
[2019-05-26] MEDS ORDERED: TPN PER PHARMACY 0 ML IV SCH (13:00)
[2019-05-26] MEDS: fentaNYL CITRATE 100 MCG/2 ML VL IV ONE ×2 (13:30→14:26)
[2019-05-26] MEDS: MIDAZOLAM HCL 1MG/1ML-2 ML VIAL IV ONE (13:30)
[2019-05-26] MEDS: ONDANSETRON HCL 4 MG/2 ML VIAL IV PRN ×2 (13:32→16:39)
[2019-05-26] MEDS ORDERED: POTASSIUM CHLORIDE 40 MEQ, LIDOCAINE 1% (LOCAL ANESTH.) 4 ML in SODIUM CHL 0.9% 100 ML IV ONE (13:45)
[2019-05-26] MEDS ORDERED: LIDOCAINE 2%HCL (LOCAL ANESTH.) INJ 20ML MDV ONE (14:11)
[2019-05-26] MEDS ORDERED: BENZOCAINE (DENTAL) 20 % SPRAY 60ML MT ONE ×2 (15:09→15:15)
[2019-05-26 15:46] LABS: Phosphorus 4.4 mg/dL (2.5-4.90)
[2019-05-26 15:50] LABS: Pre Albumin 7.8 mg/dL (20.0-40.0)
--- NOTE | 2019-05-26 16:10 | NUR ---
PICC Line Placement Patient educated on need for PICC line placement. All risks and benefits explained and all questions and concerns addressed prior to procedure. Noted past medical history and allergies with no contraindications. INR and Plt counts within acceptable range. 5 fr PICC line inserted via right brachial vein using [facility]'s [employer] US and Tip Location System. Sterile technique with maximum barrier precautions utilized. Blood return obtained from each of the two lumens and each flushed easily with NS using proper technique. PICC secured with Stat-lock; biodisc and occlusive dressing applied. Stat portable chest x-ray obtained for PICC tip placement. *Baseline Arm Circumference 28 cm. *Internal Length 44 cm. *External Lenght 0 cm. *PICC lot #[id number]. Note: EBL 1 ml. Tolerated well.
[2019-05-26] MEDS ORDERED: LIDOCAINE 1% (LOCAL ANESTH.) PF 5ml SDV ID ONE (16:30)
[2019-05-26] MEDS: HYDROmorphone HCL 2 MG/ML VL IV PRN (16:38)
--- NOTE | 2019-05-26 16:40 | NUR ---
Okay to Use PICC Line X-ray completed. Primary RN notified.
[2019-05-26] MEDS: VANCOMYCIN 1GM/250ML 250 ML IV SCH (18:00)
[2019-05-26] MEDS: PIPERACILLIN-TAZO 4.5GM 100 ML IV SCH (18:00)
[2019-05-26] MEDS ORDERED: AMINO ACID INFUSION IN D10W 1,000 ML IV ONE (20:00)
[2019-05-26] MEDS: SODIUM CHLOR 0.9% PF (SALINE LOCK) 10ML VIAL/SYR IV SCH (22:06)
[2019-05-26 23:30] VITALS: BP 115/65
--- NOTE | 2019-05-26 23:30 | NUR ---
received pt from er nurse poc reviewed, pt transferred into 263, oriented pt to nurse call light, pt connected to lis, all questions and concerns addressed
[2019-05-27] VITALS: BP 116/76
[2019-05-27] MEDS ORDERED: DEXTROSE (50%) 50ML SYRG IV SCH
[2019-05-27] MEDS: PIPERACILLIN-TAZO 4.5GM 100 ML IV SCH ×4 (01:53→17:31)
[2019-05-27] MEDS: SODIUM CHLORIDE 0.9% 1,000 ML IV SCH ×2 (01:54→14:43)
--- NOTE | 2019-05-27 03:13 | NUR ---
resting with hob up ngt to lis continue no c/o discomfort
--- NOTE | 2019-05-27 03:33 | NUR ---
awoke up to bsc with assist
[2019-05-27 04:00] VITALS: BP 115/65
[2019-05-27] MEDS: VANCOMYCIN 1GM/250ML 250 ML IV SCH ×2 (05:53→17:31)
[2019-05-27] MEDS: InsuLIN REG 1unit/0.01ml Soln (100units/ml) SC SCH ×4 (05:54→17:46)
[2019-05-27] MEDS: ACCU-CHEK COMFORT CURVE STRIP VI SCH ×4 (05:55→17:47)
[2019-05-27 06:19] LABS: Basophils # (auto) 0 uL; Basophils % (auto) 0.3 % (0.0-2.0); Eosinophils # (auto) 0.5 uL; Eosinophils % (auto) 3.6 % (0.0-7.0); Hematocrit 28.4 % (36.0-46.0); Hemoglobin 9.6 g/dL (12.2-16.2); Lymphocytes # (auto) 0.9 uL; Lymphocytes % (auto) 6.6 % (10.0-50.0); Mean Corpuscular Hemoglobin 29.5 pg (28.0-32.0); Mean Corpuscular Hgb Conc. 33.9 g/dL (32.0-36.0); Monocytes # (auto) 1.4 uL; Monocytes % (auto) 9.9 % (0.0-12.0); Neutrophils # (auto) 11.2 uL; Neutrophils % (auto) 79.6 % (37.0-80.0); Platelet Count (auto) 383 10^3/uL (140-450); Red Blood Cells 3.27 10^6/uL (4.0-5.20); Red Cell Distribution Width 14.3 % (11.8-14.3)
[2019-05-27] MEDS: HYDROmorphone HCL 2 MG/ML VL IV PRN ×3 (06:57→20:27)
[2019-05-27 07:01] LABS: Albumin 1.5 g/dL (3.4-5.0); BUN/Creatinine Ratio 11.8; Bilirubin, Total 0.3 mg/dL (0.2-1.0); Calcium 7.6 mg/dL (8.5-10.1); Magnesium 2.1 mg/dL (1.6-2.6); Phosphorus 2.9 mg/dL (2.5-4.90); Total Protein 4.5 g/dL (6.4-8.2)
[2019-05-27 08:00] VITALS: BP 115/72
--- NOTE | 2019-05-27 08:00 | NUR ---
Opening Shift Note Assumed care of patient, awake and alert. No S/S of distress/SOB or pain. Instructed on POC and to call for assist PRN, will continue to monitor for changes Q1hr and PRN. Incision wound at mid abdominal has 2 DEB drains and another drain at left upper site of the wound. Abdominal soft, no distended noted. NG tube connected to lower pressure suction. No complaining of N/V.
[2019-05-27] MEDS ORDERED: POTASSIUM CHLORIDE 60 MEQ, LIDOCAINE 1% (LOCAL ANESTH.) 6 ML in SODIUM CHL 0.9% 500 ML IV ONE (09:00)
[2019-05-27] MEDS: POTASSIUM CHL 20MEQ/100ML 100 ML IV SCH ×2 (09:11→11:12)
[2019-05-27] MEDS: SODIUM CHLOR 0.9% PF (SALINE LOCK) 10ML VIAL/SYR IV SCH ×2 (09:12→22:00)
[2019-05-27] MEDS: FAMOTIDINE (10MG/ML) 2ML VL IV SCH (09:12)
--- NOTE | 2019-05-27 10:20 | NUR ---
Mouth care supply provided, patient using bedside commode, tolerated well. Room air O2 saturation around 85%, will continue O2 NC 2 LPM and monitor.
--- NOTE | 2019-05-27 11:45 | NUR ---
Received a call from Dr. Magdalena MD made aware about lab results, received order for Ice chip. Patient made aware.
[2019-05-27 12:00] VITALS: BP 113/75
[2019-05-27] MEDS ORDERED: DOPamine 1600MCG/ML D5W 0 ML IV ONE (12:11)
[2019-05-27] MEDS ORDERED: POTASSIUM PHOSPHATE 44 MEQ in D5W 5% 250 ML IV ONE (12:30)
--- NOTE | 2019-05-27 13:06 | NUR ---
Patient using bedside commode and had small bowel movement, with green color.
[2019-05-27 16:00] VITALS: BP 124/76
--- NOTE | 2019-05-27 17:30 | NUR ---
Patient went to bedside commode, had large bowel movement with soft, and green color, no N/V noted.
--- NOTE | 2019-05-27 18:00 | NUR ---
Right EDB drain 25ml, Left DEB drain 10 ml, new drain at left upper site of incision site 5 ml. NG tube with green color around 300ml.
--- NOTE | 2019-05-27 19:27 | NUR ---
OPENING SHIFT RECEIVED REPORT FROM DAY SHIFT RN. ASSUMED CARE OF PATIENT. PATIENT IN BED WATCHING TV WITH NO SIGNS OR SYMPTOMS OF SOB, PAIN OR DISTRESS. CURRENTLY ON 2L 02 NASAL CANNULA, 02 SAT - 98%. RIGHT UPPER ARM PICC X2 - CLEAN/DRY/INTACT. NGT TO THE LEFT NARE - PATENT AND CONNECTED TO LOW INTERMITTENT SUCTION. RIGHT DEB, LEFT DEB, AND ACCORDION DRAIN - PATENT AND DRAINING MINIMAL SEROSANGUINEOUS FLUID. MIDLINE INCISION - CLEAN/DRY/INTACT, AYAH REPOSITIONED FOR COMFORT. UPDATED PATIENT ON PLAN OF CARE. BED IN LOWEST POSITION, SIDE RAILS UP X2, CALL LIGHT WITHIN REACH. WILL CONTINUE TO MONITOR.
[2019-05-27] MEDS ORDERED: TPN PER PHARMACY IV NR ×11 (20:00)
[2019-05-27 20:01] VITALS: BP 116/70
--- NOTE | 2019-05-27 23:27 | NUR ---
PM CARE PATIENT REFUSED PM CARE AT THIS TIME. STATES, "ID RATHER DO IT IN THE MORNING." REPOSITIONED FOR COMFORT. BED IN LOWEST POSITION, SIDE RAILS UP X2, CALL LIGHT WITHIN REACH. WILL CONTINUE TO MONITOR.
[2019-05-28] VITALS (7 sets, daily range): BP systolic 96–116; BP diastolic 54–71
[2019-05-28] MEDS: ACCU-CHEK COMFORT CURVE STRIP VI SCH ×4 (00:11→17:45)
[2019-05-28] MEDS: PIPERACILLIN-TAZO 4.5GM 100 ML IV SCH ×4 (00:11→17:45)
[2019-05-28] MEDS: HYDROmorphone HCL 2 MG/ML VL IV PRN ×4 (00:12→22:22)
--- NOTE | 2019-05-28 04:48 | NUR ---
DRESSING CHANGE PICC LINE DRESSING AND MIDLINE INCISION S/P DRESSING - CLEANED AND CHANGED. PATIENT TOLERATED WELL.
[2019-05-28] MEDS: VANCOMYCIN 1GM/250ML 250 ML IV SCH (06:00)
[2019-05-28] MEDS: InsuLIN REG 1unit/0.01ml Soln (100units/ml) SC SCH ×4 (06:00→17:45)
--- NOTE | 2019-05-28 07:30 | NUR ---
REPORT GIVEN TO DAY SHIFT RN.
--- NOTE | 2019-05-28 07:30 | NUR ---
Called and talked to staff from Lab chemistry asking for Lab result because at shift commander already sent blood sample to Lab. They will check.
--- NOTE | 2019-05-28 07:40 | NUR ---
Opening Shift Note Assumed care of patient, awake and alert, lying on the bed, stated that will sleep. No S/S of distress/SOB or pain. Instructed on POC and to call for assist PRN, will continue to monitor for changes Q1hr and PRN. NG tube connected to suction with low pressure, flushed, marleen of NG tube at 55cm. Dressing and Drains intact, will continue to monitor and care.
[2019-05-28 07:41] LABS: Basophils # (auto) 0.1 uL; Basophils % (auto) 0.5 % (0.0-2.0); Eosinophils # (auto) 0.6 uL; Eosinophils % (auto) 3.7 % (0.0-7.0); Hematocrit 28.7 % (36.0-46.0); Hemoglobin 10.2 g/dL (12.2-16.2); Lymphocytes # (auto) 1.5 uL; Lymphocytes % (auto) 9.2 % (10.0-50.0); Mean Corpuscular Hgb Conc. 35.6 g/dL (32.0-36.0); Mean Corpuscular Volume 84.2 fL (80.0-100.0); Monocytes # (auto) 1.4 uL; Neutrophils # (auto) 12.3 uL; Neutrophils % (auto) 77.6 % (37.0-80.0); Nucleated Red Blood Cells % 0.1 %; Platelet Count (auto) 428 10^3/uL (140-450); Red Blood Cells 3.41 10^6/uL (4.0-5.20); Red Cell Distribution Width 14.1 % (11.8-14.3); White Blood Cell 15.9 10^3/uL (4.4-10.8)
[2019-05-28 07:51] LABS: Albumin 1.7 g/dL (3.4-5.0); Calcium 7.8 mg/dL (8.5-10.1); Magnesium 2.1 mg/dL (1.6-2.6); Potassium 3.3 mmol/L (3.5-5.1)
[2019-05-28 07:54] LABS: BUN/Creatinine Ratio 12.5; Bilirubin, Total 0.3 mg/dL (0.2-1.0); Phosphorus 3.5 mg/dL (2.5-4.90)
--- NOTE | 2019-05-28 08:10 | NUR ---
Called and talked to pharmacist, made aware about vanco trough level, will adjust the dose.
[2019-05-28] MEDS: SODIUM CHLORIDE 0.9% 1,000 ML IV SCH ×2 (08:25→10:18)
[2019-05-28] MEDS ORDERED: POTASSIUM CHLORIDE 60 MEQ, LIDOCAINE 1% (LOCAL ANESTH.) 6 ML in SODIUM CHL 0.9% 500 ML IV ONE (08:45)
[2019-05-28] MEDS: FAMOTIDINE (10MG/ML) 2ML VL IV SCH (09:28)
[2019-05-28] MEDS: SODIUM CHLOR 0.9% PF (SALINE LOCK) 10ML VIAL/SYR IV SCH ×2 (09:29→22:23)
[2019-05-28] MEDS: ENOXAPARIN SOD 40 MG/0.4 ML SYRINGE SC SCH (09:29)
[2019-05-28] MEDS: VANCOMYCIN 1,500 MG in D5W 5% 250 ML IV SCH ×2 (09:30→21:27)
--- NOTE | 2019-05-28 09:30 | NUR ---
Dr. Jefferson at the bedside, seen and examined patient at this time, plan of care discussed with patient, will continue to monitor and care, plan to check CT tomorrow, patient made aware. Continue NPO, TPN, IV fluid, and pain management.
--- NOTE | 2019-05-28 12:10 | NUR ---
NUTRITION CONSULT/ASSESSMENT NOTES Please refer to link notes of nutrition screen form filed under the intervention section of the plan of care for further details. Est. Needs: 1600 kcal to 1800 kcal (18-20 kcal/kgBW), 68 gms to 86 gms pro (1.2-1.5 gms/kgIBW : 57 kg d/t severe hypoalbuminemia). Will continue to monitor pertinent labs and reassess nutrient need prn Thank you for this consult. Addendum: 05/28/19 at [address] Amended: Links added.
--- NOTE | 2019-05-28 12:45 | NUR ---
Incision wound checked at this time, patient complaining of pain when moving, medication given, no complaining of N/V noted, no fever noted. Will continue to monitor and care.
[2019-05-28] MEDS ORDERED: KETOROLAC TROMETH 30 MG/ML 1ML VIAL IV PRN (13:15)
--- NOTE | 2019-05-28 14:30 | NUR ---
Patient went to the bedside commode then found discharge oozing out from the dressing wound, wound dressing changed at this time as well, cleaning wound with NS, PAT dry, applied Povidine around 2 DEB drains and incision site at mid lower abdominal area, there were serosanguineous drain came out from left DEB drain and middle incision site, around the wound not redness, abdominal soft, no N/V or fever noted. Covered the wound with ABD pad and tape. Will continue to monitor and care.
--- NOTE | 2019-05-28 16:00 | NUR ---
Received order from Dr. Nichols for CT abdomen with contrast tomorrow, patient made aware and patient signed consent and contrast questionnaire at this time.
--- NOTE | 2019-05-28 18:40 | NUR ---
Patient using bedside commode, had small bowel movement with green color, pain 3/10 after Toradol given. NG tube content with green color around 300 ml. DEB drain had 20 ml of content with serosanguineous. No fever noted.
[2019-05-28] MEDS ORDERED: TPN PER PHARMACY IV NR ×10 (20:00)
--- NOTE | 2019-05-28 21:26 | NUR ---
PAGEJose Luis HOSPITALIST DUE TO PATIENT COMPLAINING OF 7/10 PAIN AND TORDOL INJECTION NOT DUE
--- NOTE | 2019-05-28 21:38 | NUR ---
SPOKE WITH DR. GLEZ NEW TELEPHONE ORDERS READ BACK AND VERIFIED AND WILL BE CARRIED OUT
[2019-05-29] MEDS: ACCU-CHEK COMFORT CURVE STRIP VI SCH ×4 (00:30→18:00)
[2019-05-29] MEDS: PIPERACILLIN-TAZO 4.5GM 100 ML IV SCH ×4 (00:33→19:11)
[2019-05-29 04:00] VITALS: BP 105/63
--- NOTE | 2019-05-29 04:45 | NUR ---
LABS DRAWN FROM PICC AND SENT TO LAB VIA BULLET
--- NOTE | 2019-05-29 05:05 | NUR ---
DRESSING TO ABD CHANGED DUE TO MODERATE AMOUNT OF SEROUS-SANGUINEOUS DRAINAGE COMING OUT OF MIDLINE INCISION WITH AYAH INTACT NOTED. PATIENT TOLERATED WELL.
--- NOTE | 2019-05-29 05:07 | NUR ---
AM CARE COMPLETE LINEN CHANGE DONE AND COMPLETE BED BATH PROVIDED USING CHG WIPES AND WARM WASH CLOTHS. NEW GOWN PLACED ON PATIENT AND PT REPOSITIONED IN BED FOR COMFORT. SKIN REASSESSED WITH NO NEW CHANGES NOTED.
[2019-05-29 05:12] LABS: Basophils # (auto) 0.1 uL; Basophils % (auto) 0.3 % (0.0-2.0); Eosinophils # (auto) 0.3 uL; Hematocrit 31.6 % (36.0-46.0); Hemoglobin 10.6 g/dL (12.2-16.2); Lymphocytes # (auto) 1.6 uL; Lymphocytes % (auto) 10.6 % (10.0-50.0); Mean Corpuscular Hemoglobin 28.6 pg (28.0-32.0); Mean Corpuscular Hgb Conc. 33.5 g/dL (32.0-36.0); Mean Corpuscular Volume 85.4 fL (80.0-100.0); Monocytes # (auto) 1.6 uL; Monocytes % (auto) 10.6 % (0.0-12.0); Neutrophils # (auto) 11.7 uL; Neutrophils % (auto) 76.5 % (37.0-80.0); Platelet Count (auto) 433 10^3/uL (140-450); Red Cell Distribution Width 14.4 % (11.8-14.3); White Blood Cell 15.3 10^3/uL (4.4-10.8)
[2019-05-29 05:29] LABS: Potassium 4.3 mmol/L (3.5-5.1)
[2019-05-29 05:37] LABS: Albumin 1.9 g/dL (3.4-5.0); BUN/Creatinine Ratio 13.6; Calcium 8.1 mg/dL (8.5-10.1); Magnesium 2.4 mg/dL (1.6-2.6)
[2019-05-29 05:39] LABS: Bilirubin, Total 0.4 mg/dL (0.2-1.0); Total Protein 5.7 g/dL (6.4-8.2)
[2019-05-29 06:13] LABS: Phosphorus 3.4 mg/dL (2.5-4.90)
[2019-05-29] MEDS: InsuLIN REG 1unit/0.01ml Soln (100units/ml) SC SCH ×4 (06:13→18:00)
[2019-05-29] MEDS: SODIUM CHLORIDE 0.9% 1,000 ML IV SCH ×2 (06:14→09:04)
[2019-05-29] MEDS: KETOROLAC TROMETH 30 MG/ML 1ML VIAL IV PRN ×2 (06:20→20:17)
[2019-05-29 07:35] VITALS: BP 111/67
--- NOTE | 2019-05-29 08:00 | NUR ---
Opening Shift Note Assumed care of patient, awake and alert. Patient A&Ox4. Patient on the monitor. Patient NPO except Ice chips.Patient on 2L NC saturation at 99%. IV right upper arm double lumen PICC running TPN at 60ml/hr and NS at 90ml/hr, patent clean, dry, and intact. NG tube to Left nares on LIS, position checked by auscultation. ABD dressing clean, dry, and intact. DEB and accordion drain to suction, minimal amount of serosanguineous fluid noted. No S/S of distress/SOB or pain. Instructed on POC and to call for assist. Bed locked and in the lowest position, side rails up x2, call light with in reach. Will continue to monitor.
[2019-05-29] MEDS ORDERED: IOHEXOL 300 MG/ML 100ML BOTTLE IJ ONE (08:45)
--- NOTE | 2019-05-29 09:00 | NUR ---
Patient taken to CT by [place] CUENCA.
--- NOTE | 2019-05-29 09:15 | NUR ---
Patient back from CT and on the monitor.
--- NOTE | 2019-05-29 09:45 | NUR ---
Dr. Knight at bedside.
[2019-05-29] MEDS: ENOXAPARIN SOD 40 MG/0.4 ML SYRINGE SC SCH (10:00)
--- NOTE | 2019-05-29 10:00 | NUR ---
Medication dosages, usages, and side effects explained to patient. Patient verbalized understanding. Will continue to monitor.
[2019-05-29] MEDS: FAMOTIDINE (10MG/ML) 2ML VL IV SCH (10:40)
[2019-05-29] MEDS: VANCOMYCIN 1,500 MG in D5W 5% 250 ML IV SCH ×3 (10:41→23:00)
[2019-05-29] MEDS: SODIUM CHLOR 0.9% PF (SALINE LOCK) 10ML VIAL/SYR IV SCH ×2 (10:43→20:04)
[2019-05-29] MEDS: HYDROmorphone HCL 2 MG/ML VL IV PRN ×2 (10:57→16:51)
[2019-05-29 11:35] VITALS: BP 113/70
--- NOTE | 2019-05-29 12:30 | NUR ---
Patient sitting up in bed talking with visitor. No S/S of pain/SOB or distress. Will continue to monitor.
[2019-05-29] MEDS ORDERED: FLUCONAZOLE 200MG/100ML 100 ML IV ONE (13:30)
--- NOTE | 2019-05-29 15:30 | NUR ---
Patient resting at this time. No S/S of pain/SOB or distress. Will continue to monitor.
[2019-05-29 15:45] VITALS: BP 113/68
[2019-05-29] MEDS ORDERED: ACETAMINOPHEN 500 MG TAB PO PRN (16:00)
--- NOTE | 2019-05-29 16:00 | NUR ---
Patient running temp 100.8. Called Dr. Knight got orders for Tylenol 1,000mg IV Q8hrs PRN for temp over 100.4 and Blood cultures.
[2019-05-29] MEDS ORDERED: ACETAMINOPHEN IV 1000 MG/100ML (10MG/ML) IV PRN (17:30)
--- NOTE | 2019-05-29 18:30 | NUR ---
End of shift note: Patient A&Ox4. Patient on the monitor. Patient NPO except Ice chips.Patient on 2L NC saturation at 99%. IV right upper arm double lumen PICC running TPN at 60ml/hr and NS at 90ml/hr, patent clean, dry, and intact. ABD dressing clean, dry, and intact. DEB and accordion drain to suction, minimal amount of serosanguineous fluid noted. No S/S of distress/SOB or pain. Bed locked and in the lowest position, side rails up x2, call light with in reach. Report to be given to shift superintendent caustic cresylate RN. Will continue to monitor.
[2019-05-29 20:00] VITALS: BP 115/71
[2019-05-29] MEDS ORDERED: TPN PER PHARMACY IV NR ×10 (20:00)
[2019-05-30] VITALS (7 sets, daily range): BP systolic 102–134; BP diastolic 64–78
[2019-05-30] MEDS: PIPERACILLIN-TAZO 4.5GM 100 ML IV SCH ×4 (00:11→18:23)
[2019-05-30] MEDS: InsuLIN REG 1unit/0.01ml Soln (100units/ml) SC SCH ×4 (00:13→18:00)
[2019-05-30] MEDS: ACCU-CHEK COMFORT CURVE STRIP VI SCH ×4 (00:13→18:00)
[2019-05-30] MEDS: HYDROmorphone HCL 2 MG/ML VL IV PRN ×2 (01:41→09:04)
[2019-05-30] MEDS: SODIUM CHLORIDE 0.9% 1,000 ML IV SCH ×3 (05:39→18:25)
--- NOTE | 2019-05-30 06:00 | NUR ---
AM CARE/DRESSING CHANGE COMPLETE BED BATH PROVIDED USING CHG WIPES AND WARM WASH CLOTHS.COMPLETE BED LINEN CHANGE DONE NEW GOWN PLACED ON PATIENT AND REPOSITIONED IN BED FOR COMFORT ABD DRESSING CHANGED , MODERATE AMT OF SEROSANGUINEOUS DRAINAGE NOTED PATIENT TOLERATED WELL, CALL LIGHT WITHIN EASY REACH
[2019-05-30 06:22] LABS: Basophils # (auto) 0 uL; Basophils % (auto) 0.3 % (0.0-2.0); Eosinophils # (auto) 0.3 uL; Hematocrit 29.5 % (36.0-46.0); Hemoglobin 10.1 g/dL (12.2-16.2); Lymphocytes # (auto) 1.5 uL; Lymphocytes % (auto) 10.6 % (10.0-50.0); Mean Corpuscular Hemoglobin 29.2 pg (28.0-32.0); Mean Corpuscular Hgb Conc. 34.3 g/dL (32.0-36.0); Mean Corpuscular Volume 85.1 fL (80.0-100.0); Monocytes # (auto) 1.8 uL; Monocytes % (auto) 12.3 % (0.0-12.0); Neutrophils # (auto) 10.8 uL; Neutrophils % (auto) 74.8 % (37.0-80.0); Nucleated Red Blood Cells % 0.1 %; Platelet Count (auto) 446 10^3/uL (140-450); Red Blood Cells 3.47 10^6/uL (4.0-5.20); Red Cell Distribution Width 14.1 % (11.8-14.3); White Blood Cell 14.4 10^3/uL (4.4-10.8)
[2019-05-30 06:34] LABS: Albumin 1.7 g/dL (3.4-5.0); Calcium 7.9 mg/dL (8.5-10.1); Magnesium 2.5 mg/dL (1.6-2.6); Potassium 4.2 mmol/L (3.5-5.1)
[2019-05-30 06:38] LABS: BUN/Creatinine Ratio 14.3; Bilirubin, Total 0.5 mg/dL (0.2-1.0); Phosphorus 4.2 mg/dL (2.5-4.90); Total Protein 5.8 g/dL (6.4-8.2)
--- NOTE | 2019-05-30 08:00 | NUR ---
Opening Shift Note Assumed care of patient, awake and alert. Patient A&Ox4. Patient on the monitor. Patient NPO except Ice chips.Patient on 2L NC saturation at 98%. IV right upper arm double lumen PICC running TPN at 67ml/hr and NS at 90ml/hr, patent clean, dry, and intact. ABD dressing clean, dry, and intact. DEB and accordion drain to suction, minimal amount of serosanguineous fluid noted. No S/S of distress/SOB or pain. Instructed on POC and to call for assist. Bed locked and in the lowest position, side rails up x2, call light with in reach. Will continue to monitor.
--- NOTE | 2019-05-30 10:00 | NUR ---
Medication dosages, usages, and side effects explained to patient. Patient verbalized understanding. Will continue to monitor.
[2019-05-30] MEDS: FLUCONAZOLE 200MG/100ML 100 ML IV SCH ×2 (11:00→11:12)
--- NOTE | 2019-05-30 11:00 | NUR ---
Patient PICC line removed per Dr. Nichols's orders. Catheter intact upon removal, pressure dressing placed. PICC line tip cut and sent to lab for culture. New IV placed Left forearm 20G running NS at 90ml/hr. TPN discontinued. Patient placed on CLD.
[2019-05-30] MEDS: FAMOTIDINE (10MG/ML) 2ML VL IV SCH (11:12)
[2019-05-30] MEDS: ENOXAPARIN SOD 40 MG/0.4 ML SYRINGE SC SCH (11:12)
[2019-05-30] MEDS: SODIUM CHLOR 0.9% PF (SALINE LOCK) 10ML VIAL/SYR IV SCH ×2 (11:15→21:03)
--- NOTE | 2019-05-30 11:15 | NUR ---
Dr. Knight at bedside.
--- NOTE | 2019-05-30 11:30 | NUR ---
PT REPORTS THAT SHE DOES NOT NEED P.T. AT THIS TIME.
[2019-05-30] MEDS ORDERED: ACETAMINOPHEN 325 MG TAB PO PRN (13:00)
[2019-05-30] MEDS: KETOROLAC TROMETH 30 MG/ML 1ML VIAL IV PRN ×2 (13:00→18:42)
[2019-05-30] MEDS: VANCOMYCIN 1,500 MG in D5W 5% 250 ML IV SCH ×2 (13:00→23:16)
--- NOTE | 2019-05-30 13:45 | NUR ---
Dr. Nichols at bedside. Dr. Nichols removed bilateral DEB drains, dressing placed. Removed all ABD regan and packed small opening near belly button with Iodoform Lisandra. Packing to be done daily with wound open to air. Will continue to monitor.
--- NOTE | 2019-05-30 14:24 | NUR ---
Nutrition Follow-up Notes Wt.: 83.1 kg as of yesterday. Pt's room curtain's closed with SSW at bedside during rounds this morning. Pt's on oxygen via nasal cannula, no signs of distress noted earlier, just off from TPN noted to start today on Clear Liquid diet. Est. Needs: 1600 kcal to 1800 kcal (18-20 kcal/kgBW), 68 gms to 86 gms pro (1.2-1.5 gms/kgIBW : 57 kg d/t severe hypoalbuminemia). Will continue to monitor pertinent labs and reassess nutrient need prn Labs: Gluc 140 H, Ca 7.9 L, Tpro 5.8 L, Alb 1.7 L,; Prealb 7.8 H, Trig 79 wnl Skin: Evan scale 20, low risk, pts medial anterior abdomen incision dry, intact per driller and broacher. GI: Pt had 3x BM 05/29/19per driller and broacher. PES: Partially resolved: Increased nutrient needs r/t acute/chronic medical condition aeb Intra-abdominal abscess, hx of wt loss, severe hypoalbuminemia, NPO with PN support. Altered nutrition related lab values r/t current/chronic medical condition aeb hypokalemia, hypocalcemia and severe hypoalbuminemia Will continue to monitor PO intake, skin status, pertinent labs and weight trend. F/u in 2 to 3 days. Rec.: 1.) Advance gradually to oral diet when medically appropriate. 2.) If Albumin continues trending down, consider Prostat 1 pkt BID. 3.) Refer to RD for further nutrition educ. and weight monitoring upon discharge. 4.) Continue current plan of care. 4.) Refer pt to RD for further nutrition education and weight monitoring upon discharge. 5.) Continue current plan of care.
--- NOTE | 2019-05-30 14:30 | NUR ---
Patient used bedside commode and started bleeding from ABD. Once gown was pulled up the ABD incision has opened up only the top layer no Evisceration. Spoke with Dr. Nichols he wants Lisandra dressing with ABD binder placed on patient. He will come see patient tomorrow. Will continue to monitor.
--- NOTE | 2019-05-30 15:00 | NUR ---
Patient resting no leaking noted from ABD Incision. Will continue to monitor.
--- NOTE | 2019-05-30 17:00 | NUR ---
Patient resting at this time. No S/S of Pain/SOB or distress noted. Will continue to monitor.
--- NOTE | 2019-05-30 18:30 | NUR ---
End of shift note: Patient A&Ox4. Patient on the monitor. Patient on CLD and tolerating.Patient on 2L NC saturation at 99%. IV left forearm 20G running NS at 90ml/hr, patent clean, dry, and intact. ABD dressing clean, dry, and intact. Patient has ABD binder on. Accordion drain to suction. No S/S of distress/SOB or pain. Bed locked and in the lowest position, side rails up x2, call light with in reach. Report to be given to assistant casino shift manager RN. Will continue to monitor.
--- NOTE | 2019-05-30 19:45 | NUR ---
OPEN SHIFT NOTE RECEIVED PATIENT AWAKE AND ALERT RESTING IN BED WITH NO SIGNS OF DISTRESS. ABD BINDER ON PATIENT, ABD INCISION ASSESSED NOTED TO HAVE SURGICAL AYAH AND BILATERAL DEB DRAINS REMOVED BY DR. GUTIÉRREZ. MIDLINE ABD INCISION DEHISCED WITH NO VISIBLE ORGANS. PER DAY SHIFT RN ELIZABETH, MADE AWARE AND STATES TO COVER WOUND WITH STERILE GAUZE AND FOAM TAPE AND ABD BINDER AND HE WILL RETURN TOMORROW. PER PATIENT SHE WAS GETTING UP TO USE BSC AND WOUND OPENED. DRESSING CHANGE DONE PER 'S ORDERS DUE TO MODERATE AMOUNT OF SEROUS-SANGUINEOUS DRAINAGE NOTED, PATIENT TOLERATED WELL. COMPLETE PHYSICAL ASSESSMENT DONE: SEE INTERVENTIONS. UPDATED PT ON POC AND WILL CONTINUE TO MONITOR PATIENT CLOSELY.
[2019-05-30] MEDS ORDERED: TPN PER PHARMACY IV NR ×10 (20:00)
[2019-05-31] MEDS: PIPERACILLIN-TAZO 4.5GM 100 ML IV SCH ×4 (00:02→21:24)
[2019-05-31] MEDS: ACCU-CHEK COMFORT CURVE STRIP VI SCH ×2 (00:02→06:30)
[2019-05-31] MEDS: SODIUM CHLORIDE 0.9% 1,000 ML IV SCH ×4 (03:00→21:30)
[2019-05-31 04:09] VITALS: BP 124/69
[2019-05-31 06:14] LABS: Basophils # (auto) 0.1 uL; Basophils % (auto) 0.5 % (0.0-2.0); Eosinophils # (auto) 0.2 uL; Lymphocytes # (auto) 1.3 uL; Lymphocytes % (auto) 8.1 % (10.0-50.0); Monocytes # (auto) 1.9 uL
[2019-05-31 06:17] LABS: Eosinophils % (auto) 1.1 % (0.0-7.0); Hematocrit 31.3 % (36.0-46.0); Hemoglobin 10.7 g/dL (12.2-16.2); Mean Corpuscular Hemoglobin 28.7 pg (28.0-32.0); Mean Corpuscular Hgb Conc. 34.2 g/dL (32.0-36.0); Mean Corpuscular Volume 83.9 fL (80.0-100.0); Monocytes % (auto) 11.5 % (0.0-12.0); Neutrophils # (auto) 13.2 uL; Neutrophils % (auto) 78.8 % (37.0-80.0); Platelet Count (auto) 531 10^3/uL (140-450); Red Blood Cells 3.73 10^6/uL (4.0-5.20); Red Cell Distribution Width 14.4 % (11.8-14.3); White Blood Cell 16.7 10^3/uL (4.4-10.8)
[2019-05-31] MEDS: InsuLIN REG 1unit/0.01ml Soln (100units/ml) SC SCH ×2 (06:30)
--- NOTE | 2019-05-31 06:30 | NUR ---
END OF SHIFT NOTE PATIENT RESTING IN BED QUIETLY WITH EYES CLOSED. NO S/S OF DISTRESS/SOB OR PAIN. CALL LIGHT WITHIN EASY REACH. PATIENT REMAINED STABLE THROUGHOUT THE NIGHT WITH NO MAJOR EVENTS. PATIENT WAS MOSTLY SLEEPING THROUGHOUT AND AWAKENING TO USE THE BSC. POX 92% ON RA, HR 92. ABD DRESSING CDI.WILL CONTINUE MONITORING AND ENDORSE CARE TO DAY SHIFT RN.
[2019-05-31 08:00] VITALS: BP 119/70
--- NOTE | 2019-05-31 08:30 | NUR ---
Opening Shift Note Assumed care of patient, awake and alert. No S/S of distress/SOB or pain. Patient oxygen saturation 93% at room air. Abdominal dressing dry and intact, abdominal binder in place, no drain on LT abdominal accordion. See interventions for complete assessment. Bed locked on low position, side rails up x2, call mehta within reach, patient goes to commode independently, instructed on POC and to call for assist PRN, will continue to monitor for changes Q1hr and PRN.
[2019-05-31] MEDS: FAMOTIDINE (10MG/ML) 2ML VL IV SCH (09:36)
[2019-05-31] MEDS: FLUCONAZOLE 200MG/100ML 100 ML IV SCH ×2 (09:36→11:54)
[2019-05-31] MEDS: SODIUM CHLOR 0.9% PF (SALINE LOCK) 10ML VIAL/SYR IV SCH ×2 (09:36→21:23)
[2019-05-31] MEDS: KETOROLAC TROMETH 30 MG/ML 1ML VIAL IV PRN ×2 (09:37→18:10)
[2019-05-31] MEDS: ENOXAPARIN SOD 40 MG/0.4 ML SYRINGE SC SCH (10:00)
--- NOTE | 2019-05-31 10:05 | NUR ---
assessment Patient is a 59 year old female who is alert and oriented. Patients cognitive abilities are intact. Prior to admission patient lived home with a friend and functioned independently. 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 Patient has a shower chair. Patient informed me she is able to care for her own ADLs. Per patient she will return home to her prior living arrangements post discharge and family will transport her home. Patient has no post discharge needs at this time. I informed patient she has a right to speak to a long term care social worker regarding all care. I informed patient she has a right to participate in any and all discharge planning. Patient does not have a POA and advanced directive. I have offered patient information on POA and advanced directives. I informed the patient the advantages and benefits of having an Advanced Directive. Patient verbalized understanding and agreed to discharge plan. Addendum: 05/31/19 at 1006 by Echo IBRAHIM Amended: Links added.
--- NOTE | 2019-05-31 10:30 | NUR ---
Dr Knight at bedside, updated on patient's status. Patient seen and examined. Received verbal order to instruct patient on IS and to discontinue accuchecks. Orders read back and verified. Will carry out.
--- NOTE | 2019-05-31 10:30 | NUR ---
Lovenox held at this time, patient scheduled for Closure of wound dehiscence.
--- NOTE | 2019-05-31 10:50 | NUR ---
Dr Nichols at bedside, updated on patient's status. Patient seen and examined. Plan to bring patient to surgery for closure of wound dehiscence. Orders read back and verified. Will carry out.
[2019-05-31] MEDS: VANCOMYCIN 1,500 MG in D5W 5% 250 ML IV SCH (11:00)
[2019-05-31 12:00] VITALS: BP 118/74
--- NOTE | 2019-05-31 12:04 | NUR ---
Vancomycin held, Vanco trough 24.6. Will continue to monitor
--- NOTE | 2019-05-31 12:08 | NUR ---
Patient instructed and encouraged on use of IS, patient verbalized understanding and in able to re-demonstrate.
--- NOTE | 2019-05-31 14:24 | NUR ---
Patient out of room to pre-op, Jayla CUENCA informed patient has her eyeglasses on, five earrings and one toe ring.
[2019-05-31] MEDS ORDERED: fentaNYL CITRATE 100 MCG/2 ML VL ONE ×2 (14:51→17:27)
[2019-05-31] MEDS ORDERED: PROPOFOL 10 MG/ML 20 ML IV ONE (14:52)
[2019-05-31] MEDS ORDERED: MIDAZOLAM HCL 1MG/1ML-2 ML VIAL ONE (14:52)
[2019-05-31] MEDS ORDERED: NEOSTIGMINE 1 MG/ML INJ (10mg/10ML VIAL) IV ONE (14:59)
[2019-05-31] MEDS ORDERED: GLYCOPYRROLATE 0.2 MG/ML 1ML VIAL IV ONE (14:59)
[2019-05-31] MEDS ORDERED: SUCCINYLCHOLINE CHLORIDE 20 MG/ML 10ML VIAL IV ONE (15:13)
[2019-05-31] MEDS ORDERED: ROCURONIUM 10MG/ML 10ML VIAL IV ONE (15:17)
[2019-05-31] MEDS ORDERED: ePHEDrine SULFATE 50 MG/ML AMP IV PRN (16:00)
[2019-05-31] MEDS ORDERED: ONDANSETRON HCL 4 MG/2 ML VIAL IV PRN (16:00)
[2019-05-31] MEDS ORDERED: hydrALAZINE HCL 20 MG/ML VL IV PRN (16:00)
[2019-05-31] MEDS ORDERED: HYDROmorphone HCL 2 MG/ML VL IV PRN (16:00)
[2019-05-31] MEDS: ONDANSETRON HCL 4 MG/2 ML VIAL IV PRN (18:05)
[2019-05-31] MEDS: HYDROmorphone HCL 2 MG/ML VL IV PRN ×4 (18:12→21:42)
[2019-05-31] MEDS: fentaNYL CITRATE 100 MCG/2 ML VL ONE ×3 (18:17→19:00)
[2019-05-31 18:37] LABS: Hemoglobin 10.7 g/dL (12.2-16.2)
--- NOTE | 2019-05-31 19:28 | NUR ---
Patient still at recovery, plan to transfer patient to ICU, gave report to Suzy CUENCA. Patient personal belongings endorsed to dough sheeter Kimberly including cellphone with cloth colors examiner, tablet, clothes and slippers, north coach mechanic purse, wallet, brown bag by [employer] FANG.
--- NOTE | 2019-05-31 20:05 | NUR ---
[place] [facility] [place] admitted to ICU via bed on panel monitor, and portable 02. Patient transferred to bed, connected to ICU monitoring and oxygen, and weighed by bedscale. Patient oriented to Tan vazquez RN, unit, room, bed, and unit policies regarding patient care and visiting hours. All questions and concerns addressed, patient verbalized understanding.
[2019-05-31 20:15] VITALS: BP 112/67
[2019-05-31] MEDS ORDERED: TPN PER PHARMACY 0 ML IV SCH (20:45)
[2019-05-31] MEDS ORDERED: AMINO ACID INFUSION IN D10W 1,000 ML IV NR (21:30)
[2019-05-31] MEDS ORDERED: DEXTROSE (50%) 50ML SYRG IV SCH (21:45)
[2019-05-31] MEDS: VANCOMYCIN 1GM/250ML 250 ML IV SCH (22:55)
[2019-06-01] VITALS (23 sets, daily range): BP systolic 89–112; BP diastolic 52–69
[2019-06-01] MEDS: ACCU-CHEK COMFORT CURVE STRIP VI SCH ×5 (00:30→23:37)
[2019-06-01] MEDS: InsuLIN REG 1unit/0.01ml Soln (100units/ml) SC SCH ×5 (00:49→23:37)
[2019-06-01] MEDS: KETOROLAC TROMETH 30 MG/ML 1ML VIAL IV PRN ×3 (00:57→14:30)
[2019-06-01] MEDS: PIPERACILLIN-TAZO 4.5GM 100 ML IV SCH ×4 (04:00→23:27)
[2019-06-01 04:04] LABS: Albumin 1.5 g/dL (3.4-5.0); Calcium 7.6 mg/dL (8.5-10.1); Magnesium 2.2 mg/dL (1.6-2.6); Potassium 4.1 mmol/L (3.5-5.1)
[2019-06-01 04:07] LABS: BUN/Creatinine Ratio 14.9
[2019-06-01 04:10] LABS: Bilirubin, Total 0.5 mg/dL (0.2-1.0); Total Protein 5.2 g/dL (6.4-8.2)
[2019-06-01 04:20] LABS: Basophils # (auto) 0 uL; Basophils % (auto) 0.2 % (0.0-2.0); Eosinophils # (auto) 0.2 uL; Eosinophils % (auto) 0.9 % (0.0-7.0); Hematocrit 32.4 % (36.0-46.0); Hemoglobin 11.1 g/dL (12.2-16.2); Lymphocytes # (auto) 1.3 uL; Lymphocytes % (auto) 6.8 % (10.0-50.0); Mean Corpuscular Hgb Conc. 34.2 g/dL (32.0-36.0); Monocytes # (auto) 1.5 uL; Neutrophils # (auto) 15.6 uL; Neutrophils % (auto) 84.1 % (37.0-80.0); Platelet Count (auto) 590 10^3/uL (140-450); Red Blood Cells 3.81 10^6/uL (4.0-5.20); Red Cell Distribution Width 14.6 % (11.8-14.3); White Blood Cell 18.5 10^3/uL (4.4-10.8)
[2019-06-01 04:48] LABS: Pre Albumin 9.4 mg/dL (20.0-40.0)
[2019-06-01 04:52] LABS: Phosphorus 3.9 mg/dL (2.5-4.90)
[2019-06-01] MEDS: HYDROmorphone HCL 2 MG/ML VL IV PRN ×4 (07:11→21:48)
--- NOTE | 2019-06-01 08:35 | NUR ---
DR. GUTIÉRREZ PAGED AWAITING CALLBACK
[2019-06-01] MEDS: VANCOMYCIN 1GM/250ML 250 ML IV SCH ×2 (08:48→21:12)
--- NOTE | 2019-06-01 09:26 | NUR ---
LOVENOX PATIENT HAS BLOODY OUTPUT OUT OF NGT. PER DR. GUTIÉRREZ HOLD LOVENOX AT THIS TIME
[2019-06-01 09:36] LABS: INR 1.04 (0.9-1.15); Partial Thromboplastin Time 26.5 sec (23.64-32.05)
[2019-06-01] MEDS: ENOXAPARIN SOD 40 MG/0.4 ML SYRINGE SC SCH (09:55)
[2019-06-01] MEDS: FAMOTIDINE (10MG/ML) 2ML VL IV SCH (10:02)
[2019-06-01] MEDS: SODIUM CHLOR 0.9% PF (SALINE LOCK) 10ML VIAL/SYR IV SCH ×3 (10:02→21:16)
[2019-06-01] MEDS: MICAFUNGIN SODIUM 100 MG in SODIUM CHL 0.9% 100 ML IV SCH (10:02)
--- NOTE | 2019-06-01 10:50 | NUR ---
PICC NURSE AT BEDSIDE
--- NOTE | 2019-06-01 12:00 | NUR ---
PICC line placement Patient educated on need for PICC line placement. All risks and benefits explained and all questions and concerns addressed prior to procedure. Noted past medical history and allergies with no contraindications. INR and Plt counts within acceptable range. 5 fr PICC line inserted via L BASILIC vein using [employer] US and Tip Location System. Sterile technique with maximum barrier precautions utilized. Blood return obtained from each of TWO lumens and each flushed easily with NS using proper technique. PICC secured with Stat-lock; biodisc and occlusive dressing applied. Stat portable chest x-ray obtained for PICC tip placement. *Baseline Arm Circumference 28CM. *INTERNAL LENGHT 41CM *EXTERNAL LENGHT 0 CM *PICC lot # [id number]. Note:
[2019-06-01] MEDS ORDERED: LIDOCAINE 1% (LOCAL ANESTH.) PF 5ml SDV ID ONE (12:15)
--- NOTE | 2019-06-01 12:26 | NUR ---
Nutrition Follow-up Notes Wt.: 85 kg today Pt. with PICC line placement today; TPN running at 58 ml/hr with all POC glucose <180 mg/dL. NGT gastric drainage 350 mL and chest tube drainage 40 mL per RN documentations. Est. Needs: 1600 kcal to 1800 kcal (18-20 kcal/kgBW), 68 gms to 86 gms pro (1.2-1.5 gms/kgIBW : 57 kg d/t severe hypoalbuminemia). Will continue to monitor pertinent labs and reassess nutrient need prn Labs: BG 145H, Ca 7.6L, ALB 1.5L, PAB 9.4L, POC gluc all under <180 mg/dL Skin: Evan scale 16, mod risk, pts medial anterior abdomen incision dry, intact per rn clinical documentation specialist. GI: BM x 1 on bedpan PES: Partially resolved: Increased nutrient needs r/t acute/chronic medical condition aeb Intra-abdominal abscess, hx of wt loss, severe hypoalbuminemia, NPO with PN support. Altered nutrition related lab values r/t current/chronic medical condition aeb hypokalemia, hypocalcemia and severe hypoalbuminemia Will continue to monitor PO intake, skin status, pertinent labs and weight trend. F/u in 2 to 3 days. Rec.: 1.) Advance gradually to oral diet when medically appropriate. 2.) If Albumin continues trending down, consider Prostat 1 pkt BID. 3.) Refer to RD for further nutrition educ. and weight monitoring upon discharge. 4.) Continue current plan of care. 4.) Refer pt to RD for further nutrition education and weight monitoring upon discharge. 5.) Continue current plan of care.
--- NOTE | 2019-06-01 13:20 | NUR ---
PICC LINE AT BEDSIDE FOR RE POSITIONING OF PICC LINE
[2019-06-01] MEDS: SODIUM CHLORIDE 0.9% 1,000 ML IV SCH ×2 (14:10→23:27)
--- NOTE | 2019-06-01 14:32 | NUR ---
PICC LINE EXCHANGED OVER WIRE, PLACED EASILY. PICC line placement 5 fr PICC line inserted via L BASILIC vein using [employer] US and Tip Location System. Sterile technique with maximum barrier precautions utilized. Blood return obtained from each of TWO lumens and each flushed easily with NS using proper technique. PICC secured with Stat-lock; biodisc and occlusive dressing applied. Stat portable chest x-ray obtained for PICC tip placement. *Baseline Arm Circumference 28CM. *INTERNAL LENGTH 41 CM *EXTERNAL LENGHT 0 CM *PICC lot # [id number]. Note:[]
--- NOTE | 2019-06-01 15:45 | NUR ---
OK to use PICC line Xray completed. OK to use PICC liNE. PRIMARY RN NOTIFIED
--- NOTE | 2019-06-01 19:30 | NUR ---
INITIAL ASSESSMENT ASSUMED CARE OF PATIENT ALERT AND ORIENTED X4. PUPILS 3 AND BRISK. PT ABLE TO FOLLOW COMMANDS. PT SR AT 93 BMP ON CARIAC MONITOR. RESPIRATIONS EVEN AND UNLABORED, O2 SAT 95% ON 3L NC. IV'S PATENT AND FLUSHED. NG TUBE AUSCULTATED FOR PLACEMENT AND ON LCS. ABD INCISION CDI WITH DRESSING AND ABD BINDER. DEB DRAIN WITH MINIMAL SEROUS SANGUINOUS DRAINAGE. SKIN INTACT, ABLE TO TURN SELF WITH MINIMAL ASSISTANCE. PT STATES PAIN LEVEL OF 5. PAIN MEDS TO BE GIVEN WHEN DUE, PATIENT VERBALIZED UNDERSTANDING. EDUCATED PATIENT TO CALL NURSE USING CALL BHANDARI FOR ANY ASSISTANCE OR NEED, PATIENT VERBALIZED UNDERSTANDING. BED IN LOWEST LOCKED POSITION. BED IN FULL VIEW OF NURSES STATION. WILL CONTINUE TO MONITOR. VSS.
[2019-06-01] MEDS ORDERED: PPN PER PHARMACY IV NR ×12 (20:00)
[2019-06-02] VITALS (15 sets, daily range): BP systolic 95–120; BP diastolic 58–78
--- NOTE | 2019-06-02 02:00 | NUR ---
EDUCATED ON USE OF INCENTIVE SPIROMETER RETURN DEMONSTRATION PREFORMED, INSTRUCTED PT TO USE IS UPON EACH TIME WAKING DURING NIGHT. VERBALIZED UNDERSTANDING.
[2019-06-02] MEDS: KETOROLAC TROMETH 30 MG/ML 1ML VIAL IV PRN (02:20)
[2019-06-02 04:24] LABS: Eosinophils # (auto) 0.7 uL; Hemoglobin 8.9 g/dL (12.2-16.2); Monocytes # (auto) 1.9 uL; White Blood Cell 16.6 10^3/uL (4.4-10.8)
[2019-06-02 04:26] LABS: Basophils # (auto) 0.1 uL; Basophils % (auto) 0.4 % (0.0-2.0); Eosinophils % (auto) 4.1 % (0.0-7.0); Hematocrit 27.1 % (36.0-46.0); Lymphocytes # (auto) 0.9 uL; Lymphocytes % (auto) 5.7 % (10.0-50.0); Mean Corpuscular Hemoglobin 28.7 pg (28.0-32.0); Mean Corpuscular Hgb Conc. 32.7 g/dL (32.0-36.0); Mean Corpuscular Volume 87.7 fL (80.0-100.0); Monocytes % (auto) 11.2 % (0.0-12.0); Neutrophils # (auto) 13.1 uL; Neutrophils % (auto) 78.6 % (37.0-80.0); Platelet Count (auto) 482 10^3/uL (140-450); Red Cell Distribution Width 14.3 % (11.8-14.3)
[2019-06-02 04:40] LABS: Albumin 1.3 g/dL (3.4-5.0); Calcium 7.8 mg/dL (8.5-10.1); Magnesium 2.1 mg/dL (1.6-2.6); Potassium 4.1 mmol/L (3.5-5.1)
[2019-06-02 04:45] LABS: BUN/Creatinine Ratio 11.9; Bilirubin, Total 0.6 mg/dL (0.2-1.0); Phosphorus 3.4 mg/dL (2.5-4.90); Total Protein 5.1 g/dL (6.4-8.2)
[2019-06-02] MEDS: PIPERACILLIN-TAZO 4.5GM 100 ML IV SCH ×3 (05:29→17:40)
[2019-06-02] MEDS: InsuLIN REG 1unit/0.01ml Soln (100units/ml) SC SCH ×3 (05:36→17:48)
[2019-06-02] MEDS: ACCU-CHEK COMFORT CURVE STRIP VI SCH ×3 (05:36→17:48)
--- NOTE | 2019-06-02 07:30 | NUR ---
RECEIVED REPORT PATIENT LYING IN HOSPITAL BED, EYES CLOSED. RESPIRATIONS EVEN AND UNLABORED. AWOKE TO VOICE. VITALS SIGNS STABLE. TPN AND NORMAL SALINE INFUSING ORDERED THROUGH LEFT UPPER ARM PICC. ABDOMINAL BINDER IN PLACE WITH 1 DEB DRAIN.AYON PRESENT AND DRAINING TO GRAVITY. SCDS ON BILATERAL LOWER EXTREMITIES. BED IN LOW POSITION.
[2019-06-02] MEDS: VANCOMYCIN 1GM/250ML 250 ML IV SCH (09:00)
--- NOTE | 2019-06-02 09:02 | NUR ---
PAIN PATIENT COMPLAINING OF ABDOMINAL PAIN 04/08. MEDICATED ORDERED, SEE MAR. ENCOURAGED PATIENT TO REPOSITION. WILL CONTINUE TO MONITOR CLOSELY
[2019-06-02] MEDS: HYDROmorphone HCL 2 MG/ML VL IV PRN ×4 (09:11→20:29)
--- NOTE | 2019-06-02 09:50 | NUR ---
DR GUTIÉRREZ AT BEDSIDE DISCUSSED PLAN OF CARE WITH PATIENT
[2019-06-02] MEDS: SODIUM CHLOR 0.9% PF (SALINE LOCK) 10ML VIAL/SYR IV SCH ×3 (10:00→22:24)
--- NOTE | 2019-06-02 10:10 | NUR ---
DR FIGUEROA AT BEDSIDE DISCUSSED PLAN OF CARE WITH PATIENT. NEW ORDERS RECEIVED
[2019-06-02] MEDS: ENOXAPARIN SOD 40 MG/0.4 ML SYRINGE SC SCH (10:20)
[2019-06-02] MEDS: MICAFUNGIN SODIUM 100 MG in SODIUM CHL 0.9% 100 ML IV SCH (10:20)
[2019-06-02] MEDS: FAMOTIDINE (10MG/ML) 2ML VL IV SCH (10:20)
--- NOTE | 2019-06-02 12:50 | NUR ---
BED ASSIGNMENT GIVEN, 266- REPORT GIVEN TO NEEL RN AWAITING [facility] BED TO TRANSPORT PATIENT
--- NOTE | 2019-06-02 12:56 | NUR ---
BOATSWAINS MATE AT BEDSIDE
--- NOTE | 2019-06-02 12:58 | NUR ---
RECEIVED REPORT FROM YASSINE CUENCA ,PATIENT COMING TO ROOM 266 BY THE BED,
--- NOTE | 2019-06-02 13:45 | NUR ---
RECEIVED PATIENT FROM THE ICU ROOM 112 BY THE BED, A/O TIMES 4, O2 AY 3L BY N/C, ABLE TO MOVE ALL EXTREMITIES BUT STATES SHE IS A LITTLE WEAK, SCD' ON RICKY LEGS, AYON TO GRAVITY, DRESSING TO THE ABD DRY AND INTACT, DEB ATTACHED TO THE ABD WITH BULB SUCTION, RT WRIST SALINE LOCK REMOVED DUE TO LEAKING WHEN FLUSHED, PICC LINE 2 LUMEN TO THE MAN WITH NS AT 60ML/HR AND TPN AT 58ML/HR BOTH INFUSING BY THE IV PUMP, NGT TO THE LEFT NARES CONNECTED TO LCS, WOULD NOT TURN BUT STATES SHE HAS NO WOUNDS TO HER SACRUM OR BUTTOCKS
--- NOTE | 2019-06-02 14:45 | NUR ---
FRIEND IN VISITING WITH THE TRUE
--- NOTE | 2019-06-02 15:14 | NUR ---
LYING IN BED WITH EYES CLOSED AND TALKING ON THE PHONE ON AND OFF
--- NOTE | 2019-06-02 15:19 | NUR ---
FRIEND IN TO VISIT
--- NOTE | 2019-06-02 16:22 | NUR ---
mediated for pain to the abd with Dilaudid, 03/08
--- NOTE | 2019-06-02 17:30 | NUR ---
PATIENT LYING IN BED WITH EYES CLOSED, NO COMPLAINTS AT THIS TIME
[2019-06-02 18:01] LABS: Urine Amorphous Crystal FEW /hpf (None Seen); Urine Bacteria FEW /hpf (None Seen); Urine Blood 1+ /uL (Negative); Urine Mucus FEW (None Seen); Urine Specific Gravity 1.011 (1.001-1.035); Urine WBC 2 /hpf (0 - 5)
--- NOTE | 2019-06-02 18:27 | NUR ---
SEMI FOWLERS IN BED, EYES CLOSED, O2 AT 2L BY N/C, TPN AT 58ML/HR AND NS AT 60 ML/HR BOTH INFUSING INTO THE MAN PICC, BY THE IV PUMP, AYON TO GRAVITY, SCD'D TO RICKY LEGS, NGT TO THE LEFT NARES CONNECTED TO LCS, DEB INTACT TO THE ABD, WITH ABDOMINAL DRESSING DRY AND INTACT, COVERED BY AND ABDOMINAL BINDER, NO COMPLAINTS OF PAIN AT THIS TIME, WILL CONTINUE TO MONITOR AND GIVE REPORT TO THE NEXT SHIFT
[2019-06-02 18:34] LABS: Protein, Urine 39.4 mg/dL (0.0-11.9)
[2019-06-02 18:51] LABS: BUN/Creatinine Ratio 12.5; Calcium 8.2 mg/dL (8.5-10.1); Potassium 4.2 mmol/L (3.5-5.1)
--- NOTE | 2019-06-02 19:00 | NUR ---
Opening note Assumed care of patient at this time. Report received from day shift RN. POC reviewed. Head to toe assessment complete, see intervention spreadsheet for complete details. Received pt Alert and oriented x4. Pt VSS except for rapid shallow breaths in 30's. Received pt with midline abdominal incision, CDI. Pt has raleigh drain to suction. Received pt with FC draining to gravity. IV site benign. Bed locked and in lowest position, safety precautions in place. Call light within reach. Will monitor pt carefully.
[2019-06-02] MEDS ORDERED: TPN PER PHARMACY IV NR ×10 (20:00)
--- NOTE | 2019-06-02 20:00 | NUR ---
pain management Pt requesting pain medication, given as ordered. Pt complaining of abdominal pain 06/08. See emar for reassessment.
--- NOTE | 2019-06-02 22:00 | NUR ---
IS encouraged pt able to tolerated up to 500mls. Pt has wet sounding cough.
[2019-06-02] MEDS: SODIUM CHLORIDE 0.9% 1,000 ML IV SCH (23:30)
[2019-06-03] VITALS: BP 99/65
[2019-06-03] MEDS: ACCU-CHEK COMFORT CURVE STRIP VI SCH ×4 (00:06→18:00)
[2019-06-03] MEDS: PIPERACILLIN-TAZO 4.5GM 100 ML IV SCH ×2 (00:17→05:59)
[2019-06-03] MEDS: HYDROmorphone HCL 2 MG/ML VL IV PRN ×4 (01:09→20:05)
--- NOTE | 2019-06-03 01:10 | NUR ---
pain management Pt requesting pain medication, given as ordered. Pt complaining of abdominal pain 06/08. See emar for reassessment.
[2019-06-03 03:59] VITALS: BP 106/70
[2019-06-03] MEDS: InsuLIN REG 1unit/0.01ml Soln (100units/ml) SC SCH ×4 (05:59→18:00)
[2019-06-03 06:24] LABS: Albumin 1.2 g/dL (3.4-5.0)
[2019-06-03 06:29] LABS: BUN/Creatinine Ratio 12.7; Bilirubin, Total 0.4 mg/dL (0.2-1.0); Calcium 8.2 mg/dL (8.5-10.1); Magnesium 2.4 mg/dL (1.6-2.6); Phosphorus 3.9 mg/dL (2.5-4.90); Total Protein 5.3 g/dL (6.4-8.2)
[2019-06-03 08:00] VITALS: BP 130/77
--- NOTE | 2019-06-03 08:00 | NUR ---
Opening Shift Note Assumed care of patient, awake and alert. Patient A&Ox4. Patient on the monitor. Patient on 2L NC saturation at 97%. left upper arm double lumen PICC running TPN at 60 and NS at 60, patent, clean, dry, and intact. Left nares NG tube secured, placement auscultated, NG tube on LIS. Stein to gravity. Midline incision dressing clean, dry, and intact. Midline DEB drain to suction, serosanguineous fluid noted. ABD binder on. SCD on bilateral. Patient NPO except for Ice chips. No S/S of distress/SOB or pain. Instructed on POC and to call for assist. Bed locked and in the lowest position, side rails up x2, call light with in reach. Will continue to monitor.
[2019-06-03] MEDS: SODIUM CHLORIDE 0.9% 1,000 ML IV SCH (10:00)
--- NOTE | 2019-06-03 10:00 | NUR ---
Medication dosages, usages, and side effects explained to patient. Patient verbalized understanding. Will continue to monitor.
[2019-06-03] MEDS: MICAFUNGIN SODIUM 100 MG in SODIUM CHL 0.9% 100 ML IV SCH (10:07)
[2019-06-03] MEDS: SODIUM CHLOR 0.9% PF (SALINE LOCK) 10ML VIAL/SYR IV SCH (10:07)
[2019-06-03] MEDS: FAMOTIDINE (10MG/ML) 2ML VL IV SCH (10:07)
[2019-06-03] MEDS: ENOXAPARIN SOD 40 MG/0.4 ML SYRINGE SC SCH (10:07)
[2019-06-03 12:00] VITALS: BP 133/69
[2019-06-03] MEDS: PIPERACILLIN-TAZOB 3.375GM 100 ML IV SCH ×2 (12:28→18:31)
--- NOTE | 2019-06-03 12:41 | NUR ---
Nutrition Follow-up Notes Wt.: 86.2 kg today Pt's on oxygen via nasal cannula, asleep, no immediate family member at bedside during rounds this morning. Pt's s/p repair of dehiscence (05/31/19), noted c/o pain earlier, per nursing. Pt remains NPO, currently on TPN @ 60 ml/hr providing 1600 kcal, 70 gms pro, 1320 NPCs and 19% Fat. Pt with adequate PN support d/t high initiation rate delivery of concentrated formula aeb current PN infusion meets 89% to 100% of est caloric needs and 81% to 103 of est protein needs. Noted pt's to receive tonight another TPN @ 60 ml/hr providing 1730 kcal, 60 gms pro, 1490 NPCs and 17% Fat. Est. Needs: 1600 kcal to 1800 kcal (18-20 kcal/kgBW), 68 gms to 86 gms pro (1.2-1.5 gms/kgIBW : 57 kg d/t severe hypoalbuminemia). Will continue to monitor pertinent labs and reassess nutrient need prn Labs: Gluc 143 H, Cl 111 H, BUN 28 H, Cr 1.81 H, Ca 8.2 L, Tpro 5.3 L, Alb 1.2 L, Prealb 9.4 L, Trig 123 wnl Skin: Evan scale 16, mod risk, pts medial anterior abdomen incision dry, intact per regulatory technician. GI: Pt had 3x BM 06/01/19, on NGT to LIS with 50 ml gastric drainage output this morning, per regulatory technician PES: Increased nutrient needs r/t acute/chronic medical condition aeb Intra-abdominal abscess, hx of wt loss, severe hypoalbuminemia, NPO with PN support. Altered nutrition related lab values r/t current/chronic medical condition aeb hypokalemia, hypocalcemia and severe hypoalbuminemia Will continue to monitor NPO status, PN tolerance, skin status, pertinent labs and weight trend. F/u in 2 to 3 days. Rec.: 1.) If still NPO, continue PN support that meets at least 75% of est nutrient needs. 2.) Advance gradually to oral diet when medically appropriate. 3.) Refer to RD for further nutrition educ. and weight monitoring upon discharge. 4.) Continue current plan of care.
--- NOTE | 2019-06-03 13:03 | NUR ---
Dr Crisostomo at bedside, updated on patient's status. Patient seen and examined. No new orders at this time.
--- NOTE | 2019-06-03 15:00 | NUR ---
Patient sitting up in bed talking with family. No S/S of pain/SOB or distress at this time. Will continue to monitor.
[2019-06-03 16:00] VITALS: BP 134/80
--- NOTE | 2019-06-03 16:15 | NUR ---
Patient resting at this time. Will continue to monitor.
--- NOTE | 2019-06-03 17:00 | NUR ---
Patient sitting up in bed talking with family. No S/S of pain/SOB or distress at this time. Will continue to monitor.
--- NOTE | 2019-06-03 18:15 | NUR ---
End of shift note: Patient sitting up in bed talking with family. Patient A&Ox4. Patient on the monitor. Patient on 2L NC saturation at 96%. Left upper arm double lumen PICC running TPN at 60 and NS at 60, patent, clean, dry, and intact. Left nares NG tube secured on LIS. Stein to gravity. Midline incision dressing clean, dry, and intact. Midline DEB drain to suction, serosanguineous fluid noted. ABD binder on. SCD on bilateral. Patient NPO except for Ice chips. No S/S of distress/SOB or pain. Bed locked and in the lowest position, side rails up x2, call light with in reach. Report to be given to scene shifter RN. Will continue to monitor.
[2019-06-03 20:00] VITALS: BP 135/76
[2019-06-03] MEDS ORDERED: TPN PER PHARMACY IV NR ×7 (20:00)
--- NOTE | 2019-06-03 21:10 | NUR ---
Opening Shift Note Assumed care of patient, awake and alert. No S/S of distress/SOB or severe pain. Instructed on POC and to call for assist PRN, will continue to monitor for changes Q1hr and PRN.
--- NOTE | 2019-06-03 22:30 | NUR ---
Dr. Nichols at bedside. Encouraged pt to get out of bed tomorrow. Stated NGT to come out tomorrow but no official order given. Pt stable at this time. Will continue to monitor.
[2019-06-04] VITALS: BP 141/79
[2019-06-04] MEDS: HYDROmorphone HCL 2 MG/ML VL IV PRN ×6 (00:03→22:19)
[2019-06-04] MEDS: SODIUM CHLOR 0.9% PF (SALINE LOCK) 10ML VIAL/SYR IV SCH ×3 (00:03→22:19)
[2019-06-04] MEDS: ACCU-CHEK COMFORT CURVE STRIP VI SCH ×4 (00:04→18:00)
[2019-06-04] MEDS: InsuLIN REG 1unit/0.01ml Soln (100units/ml) SC SCH ×4 (06:00→18:00)
[2019-06-04 06:05] LABS: Potassium 3.7 mmol/L (3.5-5.1)
[2019-06-04 06:14] LABS: Albumin 1.4 g/dL (3.4-5.0); BUN/Creatinine Ratio 14.1; Bilirubin, Total 0.4 mg/dL (0.2-1.0); Calcium 8.5 mg/dL (8.5-10.1); Magnesium 2.1 mg/dL (1.6-2.6); Phosphorus 3.6 mg/dL (2.5-4.90); Total Protein 5.8 g/dL (6.4-8.2)
[2019-06-04] MEDS: PIPERACILLIN-TAZOB 3.375GM 100 ML IV SCH ×3 (06:42→12:03)
--- NOTE | 2019-06-04 08:00 | NUR ---
Opening Shift Note Assumed care of patient, awake and alert. Patient A&Ox4. Patient on the monitor. Patient on 2L NC saturation at 96%. left upper arm double lumen PICC running TPN at 60 and NS at 60, patent, clean, dry, and intact. Left nares NG tube secured, placement auscultated, NG tube on LIS. Stein to gravity. Midline incision dressing clean, dry, and intact. Midline DEB drain to suction, serosanguineous fluid noted. ABD binder on. SCD on bilateral. Patient NPO except for Ice chips. No S/S of distress/SOB or pain. Instructed on POC and to call for assist. Bed locked and in the lowest position, side rails up x2, call light with in reach. Will continue to monitor.
[2019-06-04 08:15] VITALS: BP 137/89
--- NOTE | 2019-06-04 08:28 | NUR ---
Pt stable. Got up out of bed this am and had CHG bath. BM smear noted. Pt got dizzy when getting up but tolerated well and was able to stay in chair for approx 15 min for linen change. Pt returned to bed and is stable. Report given to AM shift, care endorsed.
--- NOTE | 2019-06-04 09:30 | NUR ---
PT JUST GOT OUT OF BED WITH NURSING. ATTEMPT P.T. LATER.
--- NOTE | 2019-06-04 10:00 | NUR ---
Medication dosages, usages, and side effects explained to patient. Patient verbalized understanding. Will continue to monitor.
[2019-06-04 10:17] LABS: Basophils # (auto) 0.1 uL; Mean Corpuscular Volume 86.2 fL (80.0-100.0); Monocytes # (auto) 1.1 uL
[2019-06-04] MEDS: FAMOTIDINE (10MG/ML) 2ML VL IV SCH (10:18)
[2019-06-04] MEDS: ENOXAPARIN SOD 40 MG/0.4 ML SYRINGE SC SCH (10:18)
[2019-06-04] MEDS: MICAFUNGIN SODIUM 100 MG in SODIUM CHL 0.9% 100 ML IV SCH (10:18)
[2019-06-04 10:19] LABS: Basophils % (auto) 0.7 % (0.0-2.0); Eosinophils # (auto) 0.4 uL; Eosinophils % (auto) 3.6 % (0.0-7.0); Hematocrit 25.3 % (36.0-46.0); Hemoglobin 8.4 g/dL (12.2-16.2); Lymphocytes # (auto) 0.7 uL; Lymphocytes % (auto) 6.2 % (10.0-50.0); Mean Corpuscular Hemoglobin 28.6 pg (28.0-32.0); Mean Corpuscular Hgb Conc. 33.2 g/dL (32.0-36.0); Monocytes % (auto) 9.9 % (0.0-12.0); Neutrophils # (auto) 9.2 uL; Neutrophils % (auto) 79.6 % (37.0-80.0); Platelet Count (auto) 534 10^3/uL (140-450); Red Blood Cells 2.94 10^6/uL (4.0-5.20); Red Cell Distribution Width 14.4 % (11.8-14.3); White Blood Cell 11.6 10^3/uL (4.4-10.8)
--- NOTE | 2019-06-04 10:50 | NUR ---
Spoke with Dr. Magdalena chiang to remove NG tube and Stein. Start giving patient water and see how she tolerates it. Will continue to monitor.
--- NOTE | 2019-06-04 11:00 | NUR ---
Removed NG tube and Steni. Patient tolerated. Patient resting now. Will continue to monitor.
--- NOTE | 2019-06-04 11:15 | NUR ---
Dr. Charles at bedside. No new orders.
[2019-06-04 12:00] VITALS: BP 137/84
[2019-06-04] MEDS: SODIUM CHLORIDE 0.9% 1,000 ML IV SCH (12:04)
--- NOTE | 2019-06-04 13:15 | NUR ---
Patient used bedside commode. Had a small dark brown formed BM and urinated. Patient back in bed and resting now. Will continue to monitor.
--- NOTE | 2019-06-04 15:00 | NUR ---
Patient resting at this time. No S/S of pain/SOB or distress at this time. Will continue to monitor.
[2019-06-04 15:40] VITALS: BP 142/80
[2019-06-04] MEDS: PIPERACILLIN-TAZO 4.5GM 100 ML IV SCH (18:30)
--- NOTE | 2019-06-04 18:30 | NUR ---
End of shift note: Patient A&Ox4. Patient on the monitor. Patient on 2L NC saturation at 98%. Left upper arm double lumen PICC running TPN at 60 and NS at 60, patent, clean, dry, and intact. Midline incision dressing clean, dry, and intact. Midline DEB drain to suction, serosanguineous fluid noted. SCD on bilateral. No S/S of distress/SOB or pain. Instructed on POC and to call for assist. Bed locked and in the lowest position, side rails up x2, call light with in reach. Report to be given to warehouse worker 2nd shift RN. Will continue to monitor.
[2019-06-04 20:00] VITALS: BP 139/79
[2019-06-04] MEDS ORDERED: TPN PER PHARMACY IV NR ×9 (20:00)
[2019-06-05] VITALS: BP 133/81
[2019-06-05] MEDS: SODIUM CHLORIDE 0.9% 1,000 ML IV SCH ×2 (01:30→18:44)
--- NOTE | 2019-06-05 03:25 | NUR ---
Pt remains stable. Using bedpan instead of BSC because she states she is too tired and worn out from the events of the day. Resting at this time. Requests abd binder remain off until AM. Will continue to monitor.
[2019-06-05] MEDS: HYDROmorphone HCL 2 MG/ML VL IV PRN ×5 (03:45→22:22)
[2019-06-05 04:00] VITALS: BP 133/81
--- NOTE | 2019-06-05 04:00 | NUR ---
Pt suddenly woke and went to BSC on her own without calling stated severe pain during and after from moving from bed to BSC and back. Dilaudid requested. Stated feels relief after being medicated. Dressing remains CDI.
[2019-06-05 05:48] LABS: INR 1.01 (0.9-1.15); Partial Thromboplastin Time 26.9 sec (23.64-32.05)
[2019-06-05 05:55] LABS: Calcium 8.5 mg/dL (8.5-10.1)
[2019-06-05 05:57] LABS: BUN/Creatinine Ratio 13.2
[2019-06-05] MEDS: InsuLIN REG 1unit/0.01ml Soln (100units/ml) SC SCH ×2 (06:00)
[2019-06-05] MEDS: ACCU-CHEK COMFORT CURVE STRIP VI SCH ×2 (06:00)
[2019-06-05] MEDS: PIPERACILLIN-TAZO 4.5GM 100 ML IV SCH ×4 (06:50→18:43)
--- NOTE | 2019-06-05 07:00 | NUR ---
Pt remained stable this shift. Report given, care endorsed.
[2019-06-05 08:00] VITALS: BP 139/77
--- NOTE | 2019-06-05 08:00 | NUR ---
Opening Shift Note Assumed care of patient, awake and alert. Patient A&Ox4. Patient on the monitor. Patient on 2L NC saturation at 97%. left upper arm double lumen PICC running NS at 60, patent, clean, dry, and intact. Midline incision dressing clean, dry, and intact. Midline DEB drain to suction, serosanguineous fluid noted. Patient have small sips of clear liquids and tolerating well. No S/S of distress/SOB or pain. Instructed on POC and to call for assist. Bed locked and in the lowest position, side rails up x2, call light with in reach. Will continue to monitor.
[2019-06-05 09:00] LABS: Albumin 1.5 g/dL (3.4-5.0); Magnesium 1.9 mg/dL (1.6-2.6); Phosphorus 3.4 mg/dL (2.5-4.90)
[2019-06-05] MEDS: ENOXAPARIN SOD 40 MG/0.4 ML SYRINGE SC SCH (10:00)
--- NOTE | 2019-06-05 10:00 | NUR ---
Medication dosages, usages, and side effects explained to patient. Patient verbalized understanding. Will continue to monitor.
--- NOTE | 2019-06-05 10:15 | NUR ---
Dr. Charles at bedside. No new orders at this time. Patient will stay in [facility] for 1 more day.
[2019-06-05] MEDS: FAMOTIDINE (10MG/ML) 2ML VL IV SCH (10:18)
[2019-06-05] MEDS: MICAFUNGIN SODIUM 100 MG in SODIUM CHL 0.9% 100 ML IV SCH (10:19)
[2019-06-05] MEDS: SODIUM CHLOR 0.9% PF (SALINE LOCK) 10ML VIAL/SYR IV SCH ×2 (10:28→22:22)
[2019-06-05 11:00] LABS: Basophils # (auto) 0.1 uL; Eosinophils # (auto) 0.6 uL; Eosinophils % (auto) 5.4 % (0.0-7.0); Hematocrit 26.2 % (36.0-46.0); Hemoglobin 8.6 g/dL (12.2-16.2); Lymphocytes # (auto) 1.1 uL; Lymphocytes % (auto) 11.3 % (10.0-50.0); Mean Corpuscular Hemoglobin 28.6 pg (28.0-32.0); Mean Corpuscular Hgb Conc. 32.9 g/dL (32.0-36.0); Mean Corpuscular Volume 86.7 fL (80.0-100.0); Monocytes # (auto) 1.2 uL; Monocytes % (auto) 11.5 % (0.0-12.0); Neutrophils # (auto) 7.2 uL; Neutrophils % (auto) 70.8 % (37.0-80.0); Platelet Count (auto) 557 10^3/uL (140-450); Red Blood Cells 3.02 10^6/uL (4.0-5.20); Red Cell Distribution Width 14.3 % (11.8-14.3); White Blood Cell 10.2 10^3/uL (4.4-10.8)
--- NOTE | 2019-06-05 11:00 | NUR ---
Dr. Nichols at bedside. Removed ABD dressing, leave open to air. New orders for full liquid diet advance as tolerated. Will continue to monitor.
[2019-06-05 11:50] VITALS: BP 143/86
--- NOTE | 2019-06-05 12:21 | NUR ---
Nutrition Follow-up Notes Wt.: 86.2 kg Pt's on oxygen via nasal cannula, asleep, no immediate family member at bedside during rounds this morning. Pt's s/p repair of dehiscence (05/31/19), noted c/o pain earlier, per nursing. pt is now off PN support advanced to full liq diet with ensure Enlive 1 carton tid with no PO recorded yet as pt just advanced her diet. Est. Needs: 1600 kcal to 1800 kcal (18-20 kcal/kgBW), 68 gms to 86 gms pro (1.2-1.5 gms/kgIBW : 57 kg d/t severe hypoalbuminemia). Will continue to monitor pertinent labs and reassess nutrient need prn Labs: CREAT 1.29 H, GLU 109 H, Skin: Evan scale 16, mod risk, pts medial anterior abdomen incision dry, intact per dobby loom fixer. GI: Pt had 1 BM on 06/04 per dobby loom fixer PES: Partially resolved: Increased nutrient needs r/t acute/chronic medical condition aeb Intra-abdominal abscess, hx of wt loss, severe hypoalbuminemia, NPO with PN support. Altered nutrition related lab values r/t current/chronic medical condition aeb hypokalemia, hypocalcemia and severe hypoalbuminemia Will continue to monitor PO intake, skin status, pertinent labs and weight trend. F/u in 3-5 days. Rec.: 1.) Advance diet as medically feasible. 2.) Refer to RD for further nutrition educ. and weight monitoring upon discharge. 3.) Continue current plan of care.
--- NOTE | 2019-06-05 12:45 | NUR ---
Patient sitting up in bed and able to drink half of her ensure. Patient tolerated denies N/V. Will continue to monitor.
--- NOTE | 2019-06-05 15:00 | NUR ---
PT DECLINED P.T. X 2 TODAY. PATIENT HAD BEEN UP WITH NURSING.
--- NOTE | 2019-06-05 15:30 | NUR ---
Patient sitting up in bed talking with friends at bedside. Will continue to monitor.
[2019-06-05 16:00] VITALS: BP 136/77
--- NOTE | 2019-06-05 18:05 | NUR ---
new gauze applied. gauze on pt abdomen saturated. new sterile gauze applied, pressure dressing reapplied. Addendum: 06/06/19 at 0514 by SYLVIA ASENCIO RN RN [id number]
--- NOTE | 2019-06-05 18:30 | NUR ---
End of shift note: Patient A&Ox4. Patient on the monitor. Patient on 2L NC saturation at 99%. Left upper arm double lumen PICC running NS at 60, patent, clean, dry, and intact. Midline incision open to air. Midline DEB drain to suction, serosanguineous fluid noted. No S/S of distress/SOB or pain. Bed locked and in the lowest position, side rails up x2, call light with in reach. Report to be given to logging tractor operator swamp RN. Will continue to monitor.
[2019-06-05] MEDS: Ensure Enlive Strawberry 8oz Bottle PO SCH (18:44)
[2019-06-05] MEDS ORDERED: TPN PER PHARMACY IV NR ×8 (20:00)
--- NOTE | 2019-06-05 22:22 | NUR ---
pain medication pt sates pain 10/10.prescribed pain medication given. will reassess pt.
[2019-06-05 23:00] VITALS: BP 115/72
[2019-06-06 03:39] VITALS: BP 131/81
[2019-06-06] MEDS: HYDROmorphone HCL 2 MG/ML VL IV PRN ×5 (04:44→23:59)
--- NOTE | 2019-06-06 04:44 | NUR ---
pain medication pt sates pain 10/10.prescribed pain medication given. will reassess pt.
[2019-06-06 05:36] VITALS: BP 131/79
[2019-06-06 06:00] LABS: Albumin 1.7 g/dL (3.4-5.0); Calcium 8.6 mg/dL (8.5-10.1); Potassium 3.4 mmol/L (3.5-5.1)
[2019-06-06 06:04] LABS: BUN/Creatinine Ratio 14.5; Bilirubin, Total 0.6 mg/dL (0.2-1.0); Phosphorus 4.3 mg/dL (2.5-4.90); Total Protein 6.4 g/dL (6.4-8.2)
[2019-06-06] MEDS: PIPERACILLIN-TAZO 4.5GM 100 ML IV SCH ×4 (06:15→18:18)
--- NOTE | 2019-06-06 06:38 | NUR ---
no hygiene pt states she does not want to clean up right now. she said later in the day when it is warmer and she is awake would be a better time to change the cindy and help her bath.
[2019-06-06 08:00] VITALS: BP 133/83
--- NOTE | 2019-06-06 08:30 | NUR ---
Physician medical assistant ob gyn at the bedside, seen and examined patient at this time, made aware that incision site has oozing came out, not active draining, will continue to monitor, plan of care discussed with patient, Per Dr. Nichols, will leave incision wound open to air, clean and dry.
--- NOTE | 2019-06-06 08:35 | NUR ---
Opening Shift Note Assumed care of patient, awake and alert. No S/S of distress/SOB, pain 3/10. Instructed on POC and to call for assist PRN, will continue to monitor for changes Q1hr and PRN. PICC line at the left upper arm, continue IV hydration.
[2019-06-06] MEDS: Ensure Enlive Strawberry 8oz Bottle PO SCH (09:53)
[2019-06-06] MEDS: FAMOTIDINE (10MG/ML) 2ML VL IV SCH (09:53)
[2019-06-06] MEDS: ENOXAPARIN SOD 40 MG/0.4 ML SYRINGE SC SCH (09:54)
[2019-06-06] MEDS: SODIUM CHLOR 0.9% PF (SALINE LOCK) 10ML VIAL/SYR IV SCH ×2 (09:54→22:00)
[2019-06-06] MEDS: MICAFUNGIN SODIUM 100 MG in SODIUM CHL 0.9% 100 ML IV SCH (09:55)
--- NOTE | 2019-06-06 10:00 | NUR ---
Medication for pain management given. Will continue to monitor and care.
--- NOTE | 2019-06-06 10:30 | NUR ---
MADI at the bedside, Dr. Knight at the bedside, plan of care discussed with patient, MD made aware that waiting for Dr. Nichols to visit per incision site still has draining. Patient made aware about the plan, will continue to monitor and care.
[2019-06-06 12:00] VITALS: BP 130/80
--- NOTE | 2019-06-06 12:10 | NUR ---
Received a call back from Dr. Knight per director of residential services concerning. MD made aware and still would like to continue [facility] as her diet, director of residential services made aware. Will order Glucerna per director of residential services recommendation.
--- NOTE | 2019-06-06 14:00 | NUR ---
Patient had 50% of Ensure, no N/V noted, will continue to monitor and care, patient stated that passing gas sometimes.
[2019-06-06 16:00] VITALS: BP 135/84
--- NOTE | 2019-06-06 16:17 | NUR ---
Patient able to rest, pain 3/10 after medication for pain management given, watching TV at this time.
[2019-06-06] MEDS: Glucerna Carbsteady SHAKE Stawberry 8oz PO SCH (18:18)
[2019-06-06] MEDS: SODIUM CHLORIDE 0.9% 1,000 ML IV SCH (18:19)
[2019-06-06 20:00] VITALS: BP 136/82
--- NOTE | 2019-06-06 22:05 | NUR ---
pt denies pain at this time vs are stable, pt denies pain at this time. will continue to care for and monitor
--- NOTE | 2019-06-06 23:30 | NUR ---
pain medication pt sates pain 10/10.prescribed pain medication given. will reassess pt.
[2019-06-07] VITALS: BP 134/76
[2019-06-07] MEDS: PIPERACILLIN-TAZO 4.5GM 100 ML IV SCH ×4 (00:03→17:54)
[2019-06-07] MEDS: HYDROmorphone HCL 2 MG/ML VL IV PRN ×4 (03:31→20:00)
[2019-06-07] MEDS: SODIUM CHLORIDE 0.9% 1,000 ML IV SCH ×2 (03:31→07:38)
[2019-06-07 06:03] LABS: Basophils # (auto) 0.1 uL; Eosinophils # (auto) 0.9 uL; Hemoglobin 9.2 g/dL (12.2-16.2); Lymphocytes # (auto) 0.9 uL; Monocytes # (auto) 1.1 uL; Red Cell Distribution Width 14.6 % (11.8-14.3)
[2019-06-07 06:05] LABS: Eosinophils % (auto) 8.5 % (0.0-7.0); Hematocrit 26.9 % (36.0-46.0); Lymphocytes % (auto) 8.9 % (10.0-50.0); Mean Corpuscular Hemoglobin 29.1 pg (28.0-32.0); Mean Corpuscular Hgb Conc. 34.2 g/dL (32.0-36.0); Mean Corpuscular Volume 84.9 fL (80.0-100.0); Monocytes % (auto) 10.9 % (0.0-12.0); Neutrophils # (auto) 7.3 uL; Neutrophils % (auto) 70.7 % (37.0-80.0); Platelet Count (auto) 484 10^3/uL (140-450); Red Blood Cells 3.17 10^6/uL (4.0-5.20); White Blood Cell 10.3 10^3/uL (4.4-10.8)
[2019-06-07 06:18] LABS: Albumin 1.7 g/dL (3.4-5.0); BUN/Creatinine Ratio 14.6; Calcium 8.6 mg/dL (8.5-10.1); Potassium 3.4 mmol/L (3.5-5.1)
[2019-06-07 06:21] LABS: Bilirubin, Total 0.5 mg/dL (0.2-1.0); Total Protein 6.4 g/dL (6.4-8.2)
--- NOTE | 2019-06-07 07:45 | NUR ---
Opening Shift Note Assumed care of patient, patient sleeping, woke up by calling her name. No S/S of distress/SOB or pain. Instructed on POC and to call for assist PRN, will continue to monitor for changes Q1hr and PRN.
[2019-06-07 07:50] VITALS: BP 130/79
--- NOTE | 2019-06-07 09:00 | NUR ---
Patient had bowel movement with green color, no N/V noted.
[2019-06-07] MEDS ORDERED: POTASSIUM CHLORIDE 40 MEQ, LIDOCAINE 1% (LOCAL ANESTH.) 4 ML in SODIUM CHL 0.9% 100 ML IV ONE (09:45)
[2019-06-07] MEDS: MICAFUNGIN SODIUM 100 MG in SODIUM CHL 0.9% 100 ML IV SCH (09:54)
[2019-06-07] MEDS: FAMOTIDINE (10MG/ML) 2ML VL IV SCH (09:54)
[2019-06-07] MEDS: ENOXAPARIN SOD 40 MG/0.4 ML SYRINGE SC SCH (09:54)
[2019-06-07] MEDS: SODIUM CHLOR 0.9% PF (SALINE LOCK) 10ML VIAL/SYR IV SCH ×2 (09:55→22:00)
[2019-06-07] MEDS: Glucerna Carbsteady SHAKE Stawberry 8oz PO SCH ×3 (09:55→17:54)
--- NOTE | 2019-06-07 10:30 | NUR ---
Paged Dr. Nichols , Dr. Chu cover for today. Spoke with CN, Dr. Nichols in ICU, will leave a message to .
--- NOTE | 2019-06-07 11:01 | NUR ---
Dr. Nichols at the bedside, seen and examined patient at this time, plan of care discussed with patient, will continue full liquid diet today and then advance diet tomorrow, may take shower and patient made aware to make it dry, okay to transfer to regular floor today, patient torres aware and agreed with the plan.
--- NOTE | 2019-06-07 11:30 | NUR ---
Dr. Knight at the bedside, seen and examined patient at this time, plan of care discussed with patient, will transfer to Tele if we need the bed, patient mad aware.
[2019-06-07 11:50] VITALS: BP 146/77
[2019-06-07 15:50] VITALS: BP 135/80
--- NOTE | 2019-06-07 16:17 | NUR ---
PT REFUSED PHYSICAL THERAPY. NOTIFIED RN KIERSTEN. Addendum: 06/07/19 at 1618 by JOSE WALSH PTT Amended: Links added.
--- NOTE | 2019-06-07 19:30 | NUR ---
Opening Shift Note Assumed care of patient, awake and alert, pressed a call light for ice cold water. Breathing on O2NC 2 LPM, even and nonlabored , No S/S of distress/SOB. Pain controlled with Dilaudid as MD order. PICC line at left upper arm, intact and dry, flushed well, one port infusing with NS at 60ml/hr. 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 Abdominal wires in place. Due to void. Bed in low position, call light within reach, fall and safety precaution in place. Instructed on POC and downgraded order and to call for assist PRN, will continue to monitor for changes Q1hr and PRN.
--- NOTE | 2019-06-07 21:35 | NUR ---
Transferred to 275A Pt's condition stable, awake and alert, no s/s of distress. Pt's belongings are transferred with Pt.
--- NOTE | 2019-06-07 21:41 | NUR ---
PATIENT TRANSFERRED TO UNIT ROOM 275 A. PATIENT IS RESTING IN BED IN MILD PAIN. SHE IS S/P DEHISCING WOUND REPAIR. SHE HAS AN ABDOMINAL BINDER AND A PATTI PRUIT DRAIN IN PLACE WELL AYAH IN PLACE. 8 ML OF RED FLUID WAS REMOVED FROM DRAIN. VITALS ARE STABLE AT THIS TIME. CALL LIGHT IS WITHIN REACH. WILL CONTINUE TO MONITOR.
[2019-06-07 21:50] VITALS: BP 124/78
[2019-06-08] MEDS: PIPERACILLIN-TAZO 4.5GM 100 ML IV SCH ×4 (00:16→18:05)
[2019-06-08] MEDS: HYDROmorphone HCL 2 MG/ML VL IV PRN ×5 (00:38→22:43)
--- NOTE | 2019-06-08 04:18 | NUR ---
Recieved report from Linnette CUENCA. Assumed care of patient. Patient resting in bed with breaths even and unlabored.
[2019-06-08 05:33] VITALS: BP 140/84
--- NOTE | 2019-06-08 06:46 | NUR ---
5ml serosanguineous drainage from DEB drain.
--- NOTE | 2019-06-08 08:20 | NUR ---
PT RESTING IN BED. PT REPORTS 4/10 PAIN IN ABDOMEN. MINIMAL SEROSANGUINEOUS DRAINAGE NOTED IN DEB DRAIN, APPROX 2 ML. ABDOMINAL AYAH IN TACT, INCISION SITE CLEAN DRY, NO SIGNS OF EDEMA OR ERYTHEMA. PT ABDOMINAL BINDER OFF. ENCOURAGED PT TO PUT ABDOMINAL BINDER BACK ON, PT REFUSED. PT REPORTS DR GUTIÉRREZ TOLD HER IT WAS OKAY TO KEEP OFF UNLESS SHE AMBULATES. BED IN LOWEST LOCKED POSITION, SIDE RAILS UP X2, CALL LIGHT IN REACH. WILL CONTINUE TO MONITOR.
[2019-06-08 09:00] VITALS: BP 129/81
[2019-06-08] MEDS: Glucerna Carbsteady SHAKE Stawberry 8oz PO SCH ×3 (09:33→18:05)
[2019-06-08] MEDS: MICAFUNGIN SODIUM 100 MG in SODIUM CHL 0.9% 100 ML IV SCH (09:35)
[2019-06-08] MEDS: SODIUM CHLOR 0.9% PF (SALINE LOCK) 10ML VIAL/SYR IV SCH ×2 (09:36→22:27)
[2019-06-08] MEDS: ENOXAPARIN SOD 40 MG/0.4 ML SYRINGE SC SCH (09:36)
[2019-06-08] MEDS: FAMOTIDINE (10MG/ML) 2ML VL IV SCH (09:36)
[2019-06-08 13:00] VITALS: BP 147/77
--- NOTE | 2019-06-08 14:28 | NUR ---
[facility] PT REFUSED PHYSICAL THERAPY. PT REPORTS SHE CAN GET UP TO THE BATHROOM NO PROBLEM AN DOESN'T NEED PHYSICAL THERAPY. JOELLEN RIVERO WAS NOTIFIED. Addendum: 06/08/19 at 1429 by JOSE WALSH PTT Amended: Links added.
[2019-06-08] MEDS: SODIUM CHLORIDE 0.9% 1,000 ML IV SCH (14:33)
--- NOTE | 2019-06-08 15:14 | NUR ---
Nutrition Follow-up Notes Wt.: 82.5 kg based on bed scale as of yesterday. Pt denies any discomfort when rounded this morning. 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 Pt usually has fair appetite, eat meals regularly and not into any special diets guest experience captain. Pt's currently on Soft diet with Ensure Enlive 1 carton TID, has inadequate PO intake aeb <50% ave. consumed meals (x5) in last 2 days. Encouraged to increase food intake through small frequent meals as tolerated. Est. Needs: 1600 kcal to 1800 kcal (18-20 kcal/kgBW), 68 gms to 86 gms pro (1.2-1.5 gms/kgIBW : 57 kg d/t severe hypoalbuminemia). Will continue to monitor pertinent labs and reassess nutrient need prn Labs: Gluc 117 H, Cl 110 H, K 3.4 L, BUN 19 H, Cr 1.30 H, AST 61 H, ALT 198 H, Alb 1.7 H Skin: Evan scale 16, mod risk, pt's medial anterior abdomen incision dry, intact per vp software support. GI: Pt had 1 BM on 06/04 per vp software support PES: Partially resolved: Increased nutrient needs r/t acute/chronic medical condition aeb Intra-abdominal abscess, hx of wt loss, severe hypoalbuminemia, NPO with PN support. Altered nutrition related lab values r/t current/chronic medical condition aeb hypokalemia, hypocalcemia and severe hypoalbuminemia Will continue to monitor PO intake, skin status, pertinent labs and weight trend. F/u in 3 to 5 days. Rec.: 1.) If LFTs remain elev. consider Soft Low Fat diet. 2.) If Albumin continues trending down, consider Prostat 1 pkt BID. 3.) Consider daily MVI with minerals and Asc acid 500 mgs BID prn. 4.) Continue close supervision with meals. 5.) Refer to RD for further nutrition educ. and weight monitoring upon discharge. 6.) Continue current plan of care.
--- NOTE | 2019-06-08 16:00 | NUR ---
CALLED PBX AND PAGED DR GUTIÉRREZ TO CONFIRM ABDOMINAL BINDER CAN BE LEFT OFF WHILE IN BED, AWAITING CALL BACK.
[2019-06-08 17:00] VITALS: BP 139/84
--- NOTE | 2019-06-08 19:30 | NUR ---
Opening Shift Note Report received from day shift RN. Assumed care of patient. Patient laying in bed awake and alert x4. No S/S of distress/SOB noted. Patient complains of pain to her abdominal incisions 3/10 on a numerical scale. Patient has midline abdominal incision, open to air with DEB drain in place. Bed locked and in the lowest position. Call light left within reach. Instructed on POC and to call for assist PRN, will continue to monitor for changes Q1hr and PRN.
--- NOTE | 2019-06-08 20:15 | NUR ---
APPROX 5 MLS SEROSANGUINEOUS DRAINAGE NOTED IN DEB DRAIN TOTAL.
[2019-06-08 22:00] VITALS: BP 134/79
[2019-06-09] MEDS: PIPERACILLIN-TAZO 4.5GM 100 ML IV SCH ×3 (00:25→11:21)
[2019-06-09 05:00] VITALS: BP 132/78
[2019-06-09] MEDS: SODIUM CHLORIDE 0.9% 1,000 ML IV SCH ×2 (05:30→21:34)
[2019-06-09] MEDS ORDERED: HYDROmorphone HCL 2 MG/ML VL IV ONE (06:00)
--- NOTE | 2019-06-09 07:00 | NUR ---
DEB OUTPUT 5 MLS OF SANGUINEOUS FLUID REMOVED
[2019-06-09 09:00] VITALS: BP 130/87
[2019-06-09] MEDS: Glucerna Carbsteady SHAKE Stawberry 8oz PO SCH ×3 (09:09→18:10)
[2019-06-09] MEDS: FAMOTIDINE (10MG/ML) 2ML VL IV SCH (09:09)
[2019-06-09] MEDS: MICAFUNGIN SODIUM 100 MG in SODIUM CHL 0.9% 100 ML IV SCH (09:10)
[2019-06-09] MEDS: SODIUM CHLOR 0.9% PF (SALINE LOCK) 10ML VIAL/SYR IV SCH ×2 (09:11→21:34)
[2019-06-09] MEDS: HYDROmorphone HCL 2 MG/ML VL IV PRN ×3 (11:22→21:33)
[2019-06-09 13:00] VITALS: BP 132/77
--- NOTE | 2019-06-09 14:23 | NUR ---
PT REFUSED PHYSICAL THERAPY AFTER TWO ATTEMPTS TODAY. JOELLEN RIVERO WAS NOTIFIED. Addendum: 06/09/19 at 1424 by JOSE WALSH PTT Amended: Links added.
--- NOTE | 2019-06-09 19:09 | NUR ---
5 MLS SANGUINEOUS DRAINAGE NOTED IN DEB DRAIN TOTAL FOR SHIFT.
--- NOTE | 2019-06-09 19:25 | NUR ---
Opening Shift Note Report received from day shift RN. Assumed care of patient. Patient laying in bed awake and alert x4. No S/S of distress/SOB noted. Patient complains of pain to her abdominal incisions 8/10 on a numerical scale. Patient has midline abdominal incision, open to air with DEB drain in place. Bed locked and in the lowest position. Call light left within reach. Instructed on POC and to call for assist PRN, will continue to monitor for changes Q1hr and PRN.
[2019-06-09 21:04] VITALS: BP 128/74
[2019-06-10] MEDS: HYDROmorphone HCL 2 MG/ML VL IV PRN ×5 (04:37→21:35)
[2019-06-10 05:05] LABS: Basophils # (auto) 0.1 uL; Eosinophils % (auto) 10.8 % (0.0-7.0); Hematocrit 26.9 % (36.0-46.0); Hemoglobin 9.1 g/dL (12.2-16.2); Lymphocytes # (auto) 1.7 uL; Lymphocytes % (auto) 17.5 % (10.0-50.0); Mean Corpuscular Hemoglobin 29.2 pg (28.0-32.0); Mean Corpuscular Volume 85.8 fL (80.0-100.0); Monocytes # (auto) 0.9 uL; Monocytes % (auto) 9.8 % (0.0-12.0); Neutrophils # (auto) 5.8 uL; Neutrophils % (auto) 60.9 % (37.0-80.0); Nucleated Red Blood Cells % 0.1 %; Platelet Count (auto) 382 10^3/uL (140-450); Red Blood Cells 3.13 10^6/uL (4.0-5.20); Red Cell Distribution Width 14.5 % (11.8-14.3); White Blood Cell 9.5 10^3/uL (4.4-10.8)
[2019-06-10 05:25] VITALS: BP 130/87
[2019-06-10 05:30] LABS: Albumin 1.9 g/dL (3.4-5.0); Calcium 8.3 mg/dL (8.5-10.1); Potassium 3.2 mmol/L (3.5-5.1)
[2019-06-10 05:33] LABS: BUN/Creatinine Ratio 13.4; Bilirubin, Total 0.5 mg/dL (0.2-1.0); Total Protein 6.6 g/dL (6.4-8.2)
--- NOTE | 2019-06-10 06:20 | NUR ---
PICC Line Dressing Changes PICC line dressing change done with a sterile technique. Cleansed with chloraprep scrub/betadine. Stat lock, and bio-patch as available. Occlusive dressing applied. Changed claves weekly and post lab draw. Patient tolerated well.
--- NOTE | 2019-06-10 06:39 | NUR ---
DEB OUTPUT 5 MLS OF SANGUINEOUS FLUID REMOVED
[2019-06-10] MEDS: Glucerna Carbsteady SHAKE Stawberry 8oz PO SCH ×3 (08:00→18:00)
--- NOTE | 2019-06-10 08:00 | NUR ---
Opening Note Assumed care of patient, she is A & O x4, no s/s of distress at this time. DEB drain to the right abdomen is draining serosanguinous fluid at this time. POC discussed with patient. Bed is in low, locked position, call light within reach. Bed alarm on for safety. Will continue to monitor Q1h and PRN.
[2019-06-10 09:00] VITALS: BP 127/80
[2019-06-10] MEDS: MICAFUNGIN SODIUM 100 MG in SODIUM CHL 0.9% 100 ML IV SCH (09:26)
[2019-06-10] MEDS: SODIUM CHLOR 0.9% PF (SALINE LOCK) 10ML VIAL/SYR IV SCH ×2 (10:01→21:35)
[2019-06-10] MEDS: FAMOTIDINE (10MG/ML) 2ML VL IV SCH (10:01)
[2019-06-10] MEDS ORDERED: POTASSIUM CHLORIDE 60 MEQ, LIDOCAINE 1% (LOCAL ANESTH.) 6 ML in SODIUM CHL 0.9% 500 ML IV ONE (10:15)
[2019-06-10 13:00] VITALS: BP 145/80
[2019-06-10] MEDS: MAGNESIUM SULFATE 1GM/100ML 100 ML IV SCH ×2 (13:08→14:41)
[2019-06-10] MEDS ORDERED: ACETAMINOPHEN 500 MG TAB PO PRN (15:00)
[2019-06-10 17:00] VITALS: BP 134/82
[2019-06-10] MEDS: SODIUM CHLORIDE 0.9% 1,000 ML IV SCH (17:29)
--- NOTE | 2019-06-10 19:30 | NUR ---
OPENING SHIFT NOTE RECEIVED REPORT FROM DAYSHIFT RN. PATIENT LYING IN BED WATCHING TELEVISION. NO S/S OF DISTRESS OR SOB. PAIN REPORTED TO MIDLINE ABDOMINAL INCISION, WILL MEDICATE PER MEDICATION ORDERS. MIDLINE ABDOMINAL INCISION IS CLEAN, DRY, AND INTACT. NO DRAINAGE NOTED, 20 AYAH PRESENT. PATIENT A/O X4, AMBULATORY. UPDATED PATIENT ON POC, VERBALIZED UNDERSTANDING. BED LOCKED IN LOW POSITION, CALL LIGHT WITHIN REACH. WILL CONTINUE TO MONITOR PATIENT Q1HR AND PRN.
[2019-06-10 21:59] VITALS: BP 124/73
[2019-06-11] MEDS: HYDROmorphone HCL 2 MG/ML VL IV PRN ×6 (01:31→22:15)
[2019-06-11 04:33] VITALS: BP 135/77
[2019-06-11] MEDS: SODIUM CHLORIDE 0.9% 1,000 ML IV SCH (05:40)
[2019-06-11] MEDS: Glucerna Carbsteady SHAKE Stawberry 8oz PO SCH ×3 (08:00→18:00)
[2019-06-11 08:51] VITALS: BP 144/80
[2019-06-11] MEDS: FAMOTIDINE (10MG/ML) 2ML VL IV SCH (09:50)
[2019-06-11 13:00] VITALS: BP 130/79
[2019-06-11] MEDS ORDERED: POTASSIUM CHL 20 Meq TABLET PO ONE (13:15)
--- NOTE | 2019-06-11 13:45 | NUR ---
Spoke to Dr. Garcia Potassium ordered PO for low potassium from 06/10. Notified her that patient had been covered with 60 mEq IV yesterday. Orders received, read back and verified.
[2019-06-11] MEDS: SODIUM CHLOR 0.9% PF (SALINE LOCK) 10ML VIAL/SYR IV SCH ×2 (13:46→22:01)
[2019-06-11 16:47] VITALS: BP 133/79
--- NOTE | 2019-06-11 19:35 | NUR ---
OPENING SHIFT NOTE RECEIVED REPORT FROM DAYSHIFT RN. PATIENT LYING IN BED WITH VISITOR AT BEDSIDE. NO S/S OF DISTRESS OR SOB. PAIN REPORTED TO MIDLINE ABDOMINAL INCISION, WILL MEDICATE PER MEDICATION ORDERS. MIDLINE ABDOMINAL INCISION IS CLEAN, DRY, AND INTACT. NO DRAINAGE NOTED, 20 AYAH PRESENT. PATIENT A/O X4, AMBULATORY. UPDATED PATIENT ON POC, VERBALIZED UNDERSTANDING. BED LOCKED IN LOW POSITION, CALL LIGHT WITHIN REACH. WILL CONTINUE TO MONITOR PATIENT Q1HR AND PRN.
[2019-06-11 21:38] VITALS: BP 135/83
[2019-06-12] MEDS: SODIUM CHLORIDE 0.9% 1,000 ML IV SCH (00:20)
[2019-06-12] MEDS: HYDROmorphone HCL 2 MG/ML VL IV PRN ×4 (02:13→14:33)
[2019-06-12 04:59] VITALS: BP 128/79
[2019-06-12 05:44] LABS: Basophils # (auto) 0.1 uL; Basophils % (auto) 1.7 % (0.0-2.0); Eosinophils # (auto) 0.9 uL; Eosinophils % (auto) 11.3 % (0.0-7.0); Hematocrit 27.7 % (36.0-46.0); Hemoglobin 9.3 g/dL (12.2-16.2); Lymphocytes # (auto) 1.5 uL; Lymphocytes % (auto) 19.2 % (10.0-50.0); Mean Corpuscular Hemoglobin 28.9 pg (28.0-32.0); Mean Corpuscular Hgb Conc. 33.5 g/dL (32.0-36.0); Mean Corpuscular Volume 86.2 fL (80.0-100.0); Monocytes # (auto) 0.8 uL; Monocytes % (auto) 9.6 % (0.0-12.0); Neutrophils # (auto) 4.6 uL; Neutrophils % (auto) 58.2 % (37.0-80.0); Nucleated Red Blood Cells % 0.1 %; Platelet Count (auto) 331 10^3/uL (140-450); Red Blood Cells 3.22 10^6/uL (4.0-5.20); White Blood Cell 7.9 10^3/uL (4.4-10.8)
[2019-06-12 05:51] LABS: Calcium 8.7 mg/dL (8.5-10.1); Potassium 4.1 mmol/L (3.5-5.1)
[2019-06-12 05:55] LABS: BUN/Creatinine Ratio 13.8; Magnesium 2.2 mg/dL (1.6-2.6)
[2019-06-12 05:57] LABS: Bilirubin, Total 0.4 mg/dL (0.2-1.0); Total Protein 6.3 g/dL (6.4-8.2)
--- NOTE | 2019-06-12 07:41 | NUR ---
Opening Note Assumed pt care from [facility] nurse. Pt is a/ox4 with no s/s of distress or SOB. Pt is currently laying upright in bed with no complaints. Incisions to midline are asymptomatic and open to air; regan and bands are intact. DEB tube is patent and has minimal serous-sanguineous drainage. Discussed POC with pt; pt verbalized understanding. Safety measures maintained with call light within reach, bed in lowest position and side rails up. Will continue to monitor q1hr and prn.
[2019-06-12] MEDS: Glucerna Carbsteady SHAKE Stawberry 8oz PO SCH ×2 (08:00→12:00)
[2019-06-12 08:52] VITALS: BP 160/97
[2019-06-12] MEDS: SODIUM CHLOR 0.9% PF (SALINE LOCK) 10ML VIAL/SYR IV SCH (09:13)
[2019-06-12] MEDS: FAMOTIDINE (10MG/ML) 2ML VL IV SCH (09:13)
--- NOTE | 2019-06-12 09:15 | NUR ---
Elevated BP Reported BP of 160/97 reported; reassessed pt, currently 152/86 with a HR of 86. Pt is asymptomatic otherwise; just states she is "sleepy". Will continue to monitor for any changes and again in 1 hr Addendum: 06/12/19 at 1036 by REYNA CASTELLANOS RN RN Reassessed BP; currently 139/77. Will continue to monitor.
[2019-06-12 09:32] VITALS: BP 152/86
[2019-06-12 10:36] VITALS: BP 139/77
--- NOTE | 2019-06-12 10:45 | NUR ---
Dr Salazar and Eugene at Bedside Sutures removed from abdominal site. Plan to D/C home today and follow up with both Martin and Erick in the coming week; will follow through.
[2019-06-12 13:01] VITALS: BP 100/55
[2019-06-12 13:13] VITALS: BP 138/82
--- NOTE | 2019-06-12 15:12 | NUR ---
PICC LINE D/C'ED PICC LINE TO PT'S L UPPER ARM HAS BEEN D/C'ED PER MD'S REQUEST. PT WAS PLACED IN [place] UPON REMOVAL. SITE IS ASYMPTOMATIC DESPITE SOME BRUISING FROM THE INITIAL INSERTION. CATHETER WAS REMOVED FULLY INTACT. PT TOLERATED THE REMOVAL WELL.
--- NOTE | 2019-06-12 15:13 | NUR ---
TELEBOX D/C'ED TELE BOX REMOVED AND SENT BACK TO TELE MONITOR STATION.
--- NOTE | 2019-06-12 15:14 | NUR ---
[facility] PT GETTING D/C THIS AFTERNOON. WANTS TO SKIP PHYSICAL THERAPY. JOELLEN ORELLANA WAS NOTIFIED. Addendum: 06/12/19 at 1515 by JOSE WALSH PTT Amended: Links added.
--- NOTE | 2019-06-12 15:58 | NUR ---
PT D/C'ED OFF UNIT PT LEFT UNIT VIA WHEELCHAIR. PT'S IV WELL TELEBOX WERE D/C'ED. PT IS A/OX4 WITH NO S/S OF DISTRESS OR SOB; MILD PAIN REPORTED. PT MET A FRIEND IN THE LOBBY TO WHICH WOULD TAKE HER HOME. PT LEFT WITH ALL BELONGINGS, EDUCATIONAL MATERIAL, WELL FOLLOW UP APPOINTMENT INFORMATION AND PRESCRIPTIONS. ALL QUESTIONS WERE ANSWERED AT TIME OF D/C.
== END 2019-06-12 15:58 | disposition home or self-care (01) | DRG 853 ==
LOC: ER 19:01 → TELE 19:02 → ICU CENTRL 05-26 23:47 → DOU IN ICU 05-27 00:10 → ICU WEST 05-31 18:52 → DOU IN ICU 06-02 13:45 → TELE-WESTW 06-07 21:47
PROVIDERS: ADMIT Nurse Practitioner; ATTEND Internal Medicine
PROC: 02HV33Z Insertion of Infusion Device into Superior Vena Cava, Percutaneous Approach (ICD-10-PCS; principal; 2019-05-26)
PROC: 0W9G3ZZ Drainage of Peritoneal Cavity, Percutaneous Approach (ICD-10-PCS; 2019-05-26)
PROC: 0DBE0ZZ Excision of Large Intestine, Open Approach (ICD-10-PCS; 2019-05-31)
PROC: 0DB80ZZ Excision of Small Intestine, Open Approach (ICD-10-PCS; 2019-05-31)
PROC: 02HV33Z Insertion of Infusion Device into Superior Vena Cava, Percutaneous Approach (ICD-10-PCS; 2019-06-01)
DX: A41.9 Sepsis, unspecified organism (principal); K65.1 Peritoneal abscess; N17.0 Acute kidney failure with tubular necrosis; E44.0 Moderate protein-calorie malnutrition; T81.32XA Disruption of internal operation (surgical) wound, not elsewhere classified, initial encounter; K63.0 Abscess of intestine; K66.8 Other specified disorders of peritoneum; R65.20 Severe sepsis without septic shock; E87.6 Hypokalemia; R79.89 Other specified abnormal findings of blood chemistry; Y83.8 Other surgical procedures as the cause of abnormal reaction of the patient, or of later complication, without mention of misadventure at the time of the procedure; R73.03 Prediabetes; N73.9 Female pelvic inflammatory disease, unspecified; Z88.0 Allergy status to penicillin; Z88.5 Allergy status to narcotic agent; Z93.3 Colostomy status; Z88.8 Allergy status to other drugs, medicaments and biological substances; Y92.89 Other specified places as the place of occurrence of the external cause; Z68.29 Body mass index [BMI] 29.0-29.9, adult
CPT/HCPCS: 10022; 36415; 36569; 71045; 71046; 74150; 74176; 74177; 74250; 75989; 76775; 80048; 80053; 80202; 81001; 82040; 82150; 82570; 82962; 83036; 83605; 83690; 83735; 84100; 84156; 84478; 85014; 85018; 85025; 85610; 85730; 86850; 86900; 86901; 87040; 87070; 87075; 87077; 87081; 87205; 96365; 96366; 96367; 96368; 96375; 96376; 97110; 97116; 97163; 97530; 99291; C1729; G0378; J0131; J0330; J1450; J1815; J1885; J1956; J2001; J2248; J2250; J2405; J2543; J2704; J3480; J3490; J7060

== ENCOUNTER → 2019-07-26 | Outpatient (CLI) | payer BC ==
[2019-07-26 11:26] LABS: Basophils # (auto) 0 uL; Basophils % (auto) 0.3 % (0.0-2.0); Eosinophils # (auto) 0.2 uL; Hematocrit 39.9 % (36.0-46.0); Hemoglobin 13.2 g/dL (12.2-16.2); Lymphocytes # (auto) 2.7 uL; Lymphocytes % (auto) 47.8 % (10.0-50.0); Mean Corpuscular Hemoglobin 28.1 pg (28.0-32.0); Mean Corpuscular Hgb Conc. 33.2 g/dL (32.0-36.0); Mean Corpuscular Volume 84.6 fL (80.0-100.0); Monocytes # (auto) 0.4 uL; Monocytes % (auto) 7.8 % (0.0-12.0); Neutrophils # (auto) 2.3 uL; Neutrophils % (auto) 41.1 % (37.0-80.0); Nucleated Red Blood Cells % 0.1 %; Platelet Count (auto) 279 10^3/uL (140-450); Red Blood Cells 4.71 10^6/uL (4.0-5.20); Red Cell Distribution Width 15.7 % (11.8-14.3); White Blood Cell 5.6 10^3/uL (4.4-10.8)
[2019-07-26 12:43] LABS: Albumin 3.6 g/dL (3.4-5.0); Calcium 8.9 mg/dL (8.5-10.1)
[2019-07-26 12:47] LABS: BUN/Creatinine Ratio 17.7; Bilirubin, Total 0.5 mg/dL (0.2-1.0); Total Protein 7.1 g/dL (6.4-8.2)
== END | disposition home or self-care (01) ==
LOC: LAB 11:17
PROVIDERS: ATTEND Physician Assistant
DX: E78.2 Mixed hyperlipidemia (principal); K65.1 Peritoneal abscess; K57.30 Diverticulosis of large intestine without perforation or abscess without bleeding
CPT/HCPCS: 36415; 80053; 85025

== ENCOUNTER → 2019-09-12 | Outpatient (CLI) | payer BC ==
[2019-09-12 08:58] LABS: Free T4 (Free Thyroxine) 1.21 ng/dL (0.89-1.76)
[2019-09-12 08:59] LABS: T3 Total 1.87 ng/mL (0.60-1.81)
== END | disposition home or self-care (01) ==
LOC: LAB 07:32
PROVIDERS: ATTEND Physician Assistant
DX: L65.9 Nonscarring hair loss, unspecified (principal); Z83.49 Family history of other endocrine, nutritional and metabolic diseases
CPT/HCPCS: 36415; 84439; 84443; 84480

== ENCOUNTER 2021-11-17 08:03 | Inpatient (IN) | payer BC ==
[2021-11-13 10:57] LABS: Basophils # (auto) 0.1 10 ^3/uL (0-0.2); Basophils % (auto) 1.7 % (0.0-2.0); Eosinophils # (auto) 0.2 10 ^3/uL (0-0.8); Eosinophils % (auto) 2.7 % (0.0-7.0); Hematocrit 42.6 % (36.0-46.0); Hemoglobin 14.6 g/dL (12.2-16.2); Lymphocytes % (auto) 26.7 % (10.0-50.0); Mean Corpuscular Hemoglobin 29.2 pg (28.0-32.0); Mean Corpuscular Hgb Conc. 34.3 g/dL (32.0-36.0); Monocytes # (auto) 0.7 10 ^3/uL (0-1.3); Monocytes % (auto) 9.5 % (0.0-12.0); Neutrophils # (auto) 4.5 10 ^3/uL (1.6-8.6); Neutrophils % (auto) 59.4 % (37.0-80.0); Nucleated Red Blood Cells % 0.2 %; Red Blood Cells 5.01 10^6/uL (4.0-5.20); Red Cell Distribution Width 14.2 % (11.8-14.3); White Blood Cell 7.6 10^3/uL (4.4-10.8)
[2021-11-13 11:12] LABS: Calcium 9.5 mg/dL (8.5-10.1)
[2021-11-13 11:13] LABS: INR 0.99 (0.9-1.15); Partial Thromboplastin Time 26.7 sec (23.6-33.0)
[2021-11-13 11:18] LABS: Albumin 3.7 g/dL (3.4-5.0); BUN/Creatinine Ratio 21.4; Bilirubin, Total 0.6 mg/dL (0.2-1.0); Total Protein 7.1 g/dL (6.4-8.2)
[2021-11-13 11:52] LABS: Urine Bacteria MANY /hpf (None Seen); Urine Blood 2+ /uL (Negative); Urine Specific Gravity 1.009 (1.001-1.035); Urine WBC 1 /hpf (0 - 5)
[2021-11-17] VITALS (10 sets, daily range): BP systolic 100–129; BP diastolic 58–78
[~2021-11-17] VITALS: Ht 167.6 cm; Wt 102.6 kg
[2021-11-17] MEDS ORDERED: VANCOMYCIN HCL 1000 MG VL ONE ×2 (09:30→09:40)
[2021-11-17] MEDS ORDERED: MORPHINE SULF PF 5 MG/10 ML VIAL ONE (09:38)
[2021-11-17] MEDS ORDERED: KETOROLAC TROMETH 30 MG/ML 1ML VIAL ONE (09:40)
[2021-11-17] MEDS ORDERED: TRANEXAMIC ACID 20 ML ONE (09:41)
[2021-11-17] MEDS ORDERED: BUPIVACAINE W/ EPINEPH 0.25% INJ 50ML MDV ONE (09:41)
[2021-11-17] MEDS ORDERED: TETRACAINE 1% INJ 2 ML VIAL IJ ONE (10:04)
[2021-11-17] MEDS ORDERED: fentaNYL CITRATE 100 MCG/2 ML VL ONE (10:05)
[2021-11-17] MEDS ORDERED: MIDAZOLAM HCL 2MG/2ML 2ml VIAL (1mg/ml) ONE ×2 (10:05→10:32)
[2021-11-17] MEDS ORDERED: diphenhdrAMINE HCL 50 MG/1 ML VL ONE ×2 (10:07→10:31)
[2021-11-17] MEDS ORDERED: HYDROmorphone HCL 2 MG/ML VL IV PRN (10:15)
[2021-11-17] MEDS ORDERED: LABETALOL HCL 5 MG/ML 4ML SYRINGE IV PRN (10:15)
[2021-11-17] MEDS ORDERED: ONDANSETRON HCL 4 MG/2 ML VIAL IV PRN ×2 (10:15→12:00)
[2021-11-17] MEDS ORDERED: NALOXONE HCL 0.4 MG/ML VIAL IV PRN (10:15)
[2021-11-17] MEDS ORDERED: DexAMETHasone SOD PHOS 10MG/1ML VIAL INJ IV PRN (10:15)
[2021-11-17] MEDS ORDERED: METOCLOPRAMIDE HCL 5MG/ml INJ 2ml VIAL IV PRN (10:15)
[2021-11-17] MEDS ORDERED: MIDAZOLAM HCL 2MG/2ML 2ml VIAL (1mg/ml) IV PRN (10:15)
[2021-11-17] MEDS ORDERED: ePHEDrine SULFATE 50 MG/ML AMP IV PRN (10:15)
[2021-11-17] MEDS ORDERED: DexAMETHasone SOD PHOS 10MG/1ML VIAL INJ ONE (10:26)
[2021-11-17] MEDS ORDERED: PROPOFOL 10 MG/ML 20 ML IV ONE (10:31)
[2021-11-17] MEDS ORDERED: KETOROLAC TROMETH 30 MG/ML 1ML VIAL IV PRN (12:00)
[2021-11-17] MEDS: LACTATED RINGER'S 1,000 ML IV SCH ×2 (12:00→22:08)
[2021-11-17] MEDS ORDERED: diphenhdrAMINE HCL 25 MG CAP PO PRN (12:00)
[2021-11-17] MEDS ORDERED: BISACODYL 5 MG EC TAB PO PRN (12:00)
[2021-11-17] MEDS ORDERED: NITROGLYCERIN 0.4 MG SL TAB SL PRN (12:30)
[2021-11-17] MEDS ORDERED: MORPHINE SULFATE INJECTION 2 MG/ML SYRG IV PRN (12:30)
[2021-11-17] MEDS: SODIUM CHLOR 0.9% PF (SALINE LOCK) 10ML VIAL/SYR IV SCH ×2 (14:00→22:08)
[2021-11-17 20:19] LABS: Urine Bacteria FEW /hpf (None Seen); Urine Blood 2+ /uL (Negative); Urine Specific Gravity 1.018 (1.001-1.035); Urine WBC 1 /hpf (0 - 5)
[2021-11-17] MEDS: diphenhdrAMINE HCL 50 MG/1 ML VL IV PRN (22:06)
[2021-11-17] MEDS: VANCOMYCIN 1GM/250ML 250 ML IV SCH (22:06)
[2021-11-17] MEDS: DOCUSATE SOD 100 MG CAP PO SCH (22:08)
[2021-11-18] VITALS (24 sets, daily range): BP systolic 97–133; BP diastolic 55–85
[2021-11-18] MEDS: HYDROcodone-ACET 5/325MG TAB PO PRN (03:55)
[2021-11-18] MEDS: SODIUM CHLOR 0.9% PF (SALINE LOCK) 10ML VIAL/SYR IV SCH ×3 (05:06→21:16)
[2021-11-18 05:51] LABS: Potassium 4.1 mmol/L (3.5-5.1)
[2021-11-18 05:57] LABS: Hematocrit 37.1 % (36.0-46.0); Hemoglobin 12.4 g/dL (12.2-16.2)
[2021-11-18 06:00] LABS: Albumin 2.9 g/dL (3.4-5.0); Bilirubin, Total 0.7 mg/dL (0.2-1.0); Calcium 8.5 mg/dL (8.5-10.1); Total Protein 5.6 g/dL (6.4-8.2)
[2021-11-18] MEDS: LACTATED RINGER'S 1,000 ML IV SCH ×2 (08:00→11:45)
[2021-11-18] MEDS: ENOXAPARIN SOD 40 MG/0.4 ML SYRINGE SC SCH (09:53)
[2021-11-18] MEDS: VANCOMYCIN 1GM/250ML 250 ML IV SCH (09:53)
[2021-11-18] MEDS: PANTOPRAZOLE 40 MG TAB PO SCH (09:53)
[2021-11-18] MEDS: DOCUSATE SOD 100 MG CAP PO SCH ×2 (09:54→21:16)
[2021-11-18] MEDS: diphenhdrAMINE HCL 50 MG/1 ML VL IV PRN (10:06)
[2021-11-18] MEDS: HYDROmorphone HCL 2 MG/ML VL IV PRN ×6 (10:26→23:37)
[2021-11-18] MEDS ORDERED: NITROFURANTOIN 100 mg CAP PO ONE (11:45)
[2021-11-18] MEDS: NITROFURANTOIN 100 mg CAP PO SCH (21:17)
[2021-11-19] MEDS: LACTATED RINGER'S 1,000 ML IV SCH (01:16)
[2021-11-19 05:11] VITALS: BP 128/72
[2021-11-19] MEDS: HYDROmorphone HCL 2 MG/ML VL IV PRN ×5 (05:12→21:28)
[2021-11-19] MEDS: SODIUM CHLOR 0.9% PF (SALINE LOCK) 10ML VIAL/SYR IV SCH ×3 (06:27→21:27)
[2021-11-19 07:16] LABS: Hemoglobin 12.8 g/dL (12.2-16.2)
[2021-11-19 09:00] VITALS: BP 122/73
[2021-11-19] MEDS: DOCUSATE SOD 100 MG CAP PO SCH ×2 (09:17→21:27)
[2021-11-19] MEDS: PANTOPRAZOLE 40 MG TAB PO SCH (09:17)
[2021-11-19] MEDS: NITROFURANTOIN 100 mg CAP PO SCH ×2 (09:17→21:27)
[2021-11-19] MEDS: ENOXAPARIN SOD 40 MG/0.4 ML SYRINGE SC SCH (09:18)
[2021-11-19] MEDS: HYDROcodone-ACET 5/325MG TAB PO PRN (12:53)
[2021-11-19 13:00] VITALS: BP 118/70
[2021-11-19 17:00] VITALS: BP 129/75
[2021-11-19 20:00] VITALS: BP 124/74
[2021-11-19 22:00] VITALS: BP 131/74
[2021-11-20] MEDS: HYDROmorphone HCL 2 MG/ML VL IV PRN ×3 (04:14→13:07)
[2021-11-20 05:00] VITALS: BP 117/68
[2021-11-20] MEDS: SODIUM CHLOR 0.9% PF (SALINE LOCK) 10ML VIAL/SYR IV SCH ×2 (06:15→13:08)
[2021-11-20 06:16] LABS: Hematocrit 36.4 % (36.0-46.0)
[2021-11-20 08:00] VITALS: BP 124/74
[2021-11-20] MEDS: DOCUSATE SOD 100 MG CAP PO SCH (08:50)
[2021-11-20] MEDS: ENOXAPARIN SOD 40 MG/0.4 ML SYRINGE SC SCH (08:50)
[2021-11-20] MEDS: NITROFURANTOIN 100 mg CAP PO SCH (08:50)
[2021-11-20] MEDS: PANTOPRAZOLE 40 MG TAB PO SCH (08:50)
[2021-11-20 12:53] VITALS: BP 115/74
[2021-11-20 13:07] VITALS: BP 115/74
== END 2021-11-20 16:40 | disposition home health service (06) | DRG 470 ==
LOC: SUR 08:03 → TELE 12:26 → TELE-WESTW 13:36 → WEST WING 11-19 13:54
PROVIDERS: ADMIT Orthopaedic Surgery Adult Reconstructive Orthopaedic Surgery; ATTEND Internal Medicine
PROC: 8E0YXBZ Computer Assisted Procedure of Lower Extremity (ICD-10-PCS; 2021-11-17)
PROC: 0SRD0J9 Replacement of Left Knee Joint with Synthetic Substitute, Cemented, Open Approach (ICD-10-PCS; principal; 2021-11-17 10:12)
DX: M17.12 Unilateral primary osteoarthritis, left knee (principal); N39.0 Urinary tract infection, site not specified; E66.9 Obesity, unspecified; Z88.6 Allergy status to analgesic agent; Z88.0 Allergy status to penicillin; Z88.8 Allergy status to other drugs, medicaments and biological substances; Z68.36 Body mass index [BMI] 36.0-36.9, adult
CPT/HCPCS: 36415; 73562; 80053; 81001; 85014; 85018; 85025; 85610; 85730; 86850; 86900; 86901; 87086; 97110; 97116; 97163; 97530; G0378; J1100; J1885; J2250; J2704

== ENCOUNTER → 2022-08-19 | Outpatient (CLI) | payer BC ==
[~2022-08-19] MED LIST changes: -AMBIEN; +BUPIVACAINE HCL 0.25% P/F 10 ML VIAL ONE; +IOHEXOL 180 MG/ML 20ML VIAL IJ ONE; +LIDOCAINE 2%HCL (LOCAL ANESTH.) INJ 10ml MDV ONE; +methylPREDNISolone ACETATE 80 MG/ML VL ONE
== END | disposition home or self-care (01) ==
LOC: XYW 10:02
PROVIDERS: ATTEND Orthopaedic Surgery Adult Reconstructive Orthopaedic Surgery
DX: M25.551 Pain in right hip (principal); M16.11 Unilateral primary osteoarthritis, right hip
CPT/HCPCS: 20610; 73501; 76000; J1040; J2001; J3490; Q9965